=== PATIENT | female | born 1965 | race Caucasian/White ===

== ENCOUNTER 2016-11-21 09:37 | Emergency (ER) | payer OTHER ==
[~2016-11-21] VITALS: Ht 154.9 cm; Wt 56.4 kg
[~2016-11-21 09:37] MED LIST: ACET-1256 PO; ASPI81TA28 PO; CLIN300C2 PO; HYDR-5688 PO
[2016-11-21 09:46] VITALS: TEMP 36.4; Ht 154.9 cm; Wt 56.4 kg
[2016-11-21 10:42] LABS: URINE APPEARANCE CLEAR (CLEAR); URINE BILIRUBIN NEG (NEG); URINE COLOR YELLOW; URINE NITRITE NEG (NEG); URINE PH 6.5 (4.5-7.5); URINE SPECIFIC GRAVITY 1.006 (1.000-1.030); UROBILINOGEN NEG (NEG)
[2016-11-21 10:43] LABS: BASO % 0.3 %; BASO ABS # 0.02 K/uL (0-0.2); COMPLETE YES; EOS % 1.3 %; HEMATOCRIT 39.9 % (37-47); IG% 0.1 %; MEAN CELL VOLUME 92.8 fL (80-100); MEAN CORPUSCULAR HEMOGLOBIN 33.3 pg (25-34); MEAN CORPUSCULAR HGB CONC 35.8 g/dl (32-36); MEAN PLATELET VOLUME 8.9 fL (7.4-10.4); MONO % 5.6 %; NEUT % 61.7 %; PLATELET COUNT 348 K/uL (130-400); WHITE BLOOD COUNT 6.77 K/uL (4.8-10.8)
[2016-11-21 10:54] LABS: MANUAL MICROSCOPIC REQUIRED? NO; REVIEW REQ? NO
[2016-11-21 11:01] LABS: BUN/CREATININE RATIO 16.4 (10-20); CALCIUM 9.6 mg/dl (8.5-10.1); CREATININE 0.72 mg/dl (0.60-1.20); POTASSIUM 3.6 mmol/L (3.5-5.1)
--- NOTE | 2016-11-21 11:01 | DIAGNOSTIC IMAGING REPORT ---
ABDOMEN 2VIEW W/PA CHEST RTN CLINICAL HISTORY: Persistent right upper quadrant abdominal pain COMPARISON STUDY: No previous studies for comparison. FINDINGS: The erect chest reveals no evidence of free air. There is no evidence of focal pulmonary consolidation.] Erect and supine views of the abdomen reveal no abnormally dilated loops of large or small bowel. There are no transition zone to indicate bowel obstruction. There are few scattered air-fluid levels, most of which appear colonic. There are multiple pelvic basin calcifications, likely represent phleboliths. IMPRESSION: No evidence of bowel obstruction. No evidence of free air. Electronically signed by: Aakash Syed M.D. 11/21/2016 11:00 AM Dictated Date/Time: 11/21/2016 10:59 AM
[2016-11-21 11:03] LABS: ALB/GLOB RATIO 1.2 (0.9-2)
--- NOTE | 2016-11-21 12:48 | DIAGNOSTIC IMAGING REPORT ---
BILIARY ULTRASOUND CLINICAL HISTORY: Right upper quadrant abdominal pain COMPARISON STUDY: No previous studies for comparison. FINDINGS: The pancreas appears sonographically normal. The liver appears sonographically normal. There is no right-sided hydronephrosis. There is no ductal dilatation. The common bile duct measures 6 mm. The gallbladder appears sonographically normal. IMPRESSION: Normal study Electronically signed by: Aakash Syed M.D. 11/21/2016 12:45 PM Dictated Date/Time: 11/21/2016 12:44 PM
--- NOTE | 2016-11-21 13:29 | EMERGENCY ROOM VISIT NOTE ---
History First contact with patient: 10:04 Chief Complaint: ABDOMINAL PAIN Stated Complaint: STRONG PAIN ON RIGHT SIDE OF STOMACH Nursing Triage Summary: Triage note; pt reports right upper abd pain x several weeks and pain increased today. pt reports constipation and took a laxative at 0300 today and had bm today. History of Present Illness Patient is a 51-year-old white female who presents to the emergency department for evaluation of right upper quadrant pain 2 weeks. She notes that the pain was mild and tolerable initially, but worsened over the last couple of days and became its most severe at around 6:00 this morning. At its worst she would've rated her pain an 8/10, presently she rates it a 6/10. She describes it as a pinching sensation in her right upper quadrant that does not radiate. There has been no associated nausea, vomiting or anorexia. She denies any urinary symptoms. She has been constipated and did take a laxative today which produced a normal brown bowel movement without melena or blood. She denies any aggravating or alleviating factors including specific foods, belching, coughing or deep breathing or position changes. She has a history of uterine fibroids, and reports that she is perimenopausal, her last menstrual period was about 6 months ago. She denies any abnormal vaginal discharge or pelvic pain. She denies any chest pain, palpitations or shortness of breath. She denies a family history of gallbladder disease. She is status post tubal ligation. Review of Systems Review of systems as per HPI. All other systems reviewed were negative. 10 systems reviewed. Past Medical/Surgical History Medical Problems: (1) Cellulitis (2) Dental abscess (3) Facial swelling (4) Rash (5) UTERINE LEIOMYOMA NOS Electronic medical records are reviewed and summarized as above/below. See Problem List. Family History Cancer Diabetes mellitus Heart disease Lung disease Social History Smoking Status: Current Every Day Smoker Alcohol Use: none Drug Use: none Marital Status: Housing Status: lives with significant other Occupation Status: employed Current/Historical Medications Scheduled Aspirin (Aspirin Ec), 81 MG PO DAILY Scheduled PRN Acetaminophen (Tylenol), 500 MG PO Q6 PRN for Pain Allergies Coded Allergies: Penicillins (Verified Allergy, Intermediate, RASH, 11/21/16) Uncoded Allergies: CILLINS (Allergy, Intermediate, HIVES, 05/09/16) Physical Exam Vital Signs Date Time Temp Pulse Resp B/P Pulse Ox O2 Delivery O2 Flow Rate FiO2 11/21/16 13:42 103 18 153/99 97 Room Air 11/21/16 11:37 81 18 128/94 100 Room Air 11/21/16 09:46 36.4 96 18 131/90 98 Room Air Physical Exam CONSTITUTIONAL: Patient is well-appearing 51-year-old white female who is awake and alert and in no acute distress. Vital signs are stable. EYES: Pupils equal, round, reactive to light and accommodation. EOMs intact without nystagmus. Sclera are anicteric. ENT: Tympanic membranes intact, with normal landmarks. External canals are clear. Oral and nasopharynx are clear. Mucous membranes are moist, no lesions , tongue and gums appear normal. NECK: No bruits auscultated. Supple without lymphadenopathy. No thyromegaly. No meningeal signs. Full active range of motion without discomfort. CARDIOVASCULAR: Regular rate and rhythm, with normal S1 and S2, no murmur or gallop or rub is heard. No carotid bruits auscultated. No JVD. Peripheral pulses easy to palpable. RESPIRATORY: Breath sounds equal and clear to auscultation without wheezes, rales, or rhonchi heard. Full and equal chest expansion without accessory muscle use or retractions. GI: Bowel sounds are present. Abdomen is soft, nontender, nondistended. No organomegaly. No pulsatile masses. No guarding or rebound. Negative Iqbal sign. MUSCULOSKELETAL: Full range of motion of extremities x 4 with good strength. No cyanosis, edema, joint tenderness or swelling. No deformity. INTEGUMENTARY: No lesions or rash, normal skin turgor. NEUROLOGICAL: Alert, oriented, and cooperative. Cranial nerves, sensation and strength grossly intact. Pupils round, equal, and react to light, EOMs are full. LYMPH: No lymphadenopathy. Medical Decision & Procedures ER Provider Diagnostic Interpretation: ABDOMEN 2VIEW W/PA CHEST RTN CLINICAL HISTORY: Persistent right upper quadrant abdominal pain COMPARISON STUDY: No previous studies for comparison. FINDINGS: The erect chest reveals no evidence of free air. There is no evidence of focal pulmonary consolidation. Erect and supine views of the abdomen reveal no abnormally dilated loops of large or small bowel. There are no transition zone to indicate bowel obstruction. There are few scattered air-fluid levels, most of which appear colonic. There are multiple pelvic basin calcifications, likely represent phleboliths. IMPRESSION: No evidence of bowel obstruction. No evidence of free air. BILIARY ULTRASOUND CLINICAL HISTORY: Right upper quadrant abdominal pain COMPARISON STUDY: No previous studies for comparison. FINDINGS: The pancreas appears sonographically normal. The liver appears sonographically normal. There is no right-sided hydronephrosis. There is no ductal dilatation. The common bile duct measures 6 mm. The gallbladder appears sonographically normal. IMPRESSION: Normal study Laboratory Results 11/21/16 10:26 Red Blood Count 4.30, Mean Corpuscular Volume 92.8, Mean Corpuscular Hemoglobin 33.3, Mean Corpuscular Hemoglobin Concent 35.8, Mean Platelet Volume 8.9, Neutrophils (%) (Auto) 61.7, Lymphocytes (%) (Auto) 31.0, Monocytes (%) (Auto) 5.6, Eosinophils (%) (Auto) 1.3, Basophils (%) (Auto) 0.3, Neutrophils # (Auto) 4.17, Lymphocytes # (Auto) 2.10, Monocytes # (Auto) 0.38, Eosinophils # (Auto) 0.09, Basophils # (Auto) 0.02 11/21/16 10:26 Test 11/21/16 10:26 11/21/16 10:27 White Blood Count 6.77 K/uL (4.8-10.8) Red Blood Count 4.30 M/uL (4.2-5.4) Hemoglobin 14.3 g/dL (12.0-16.0) Hematocrit 39.9 % (37-47) Mean Corpuscular Volume 92.8 fL (80-100) Mean Corpuscular Hemoglobin 33.3 pg (25-34) Mean Corpuscular Hemoglobin Concent 35.8 g/dl (32-36) Platelet Count 348 K/uL (130-400) Mean Platelet Volume 8.9 fL (7.4-10.4) Neutrophils (%) (Auto) 61.7 % Lymphocytes (%) (Auto) 31.0 % Monocytes (%) (Auto) 5.6 % Eosinophils (%) (Auto) 1.3 % Basophils (%) (Auto) 0.3 % Neutrophils # (Auto) 4.17 K/uL (1.4-6.5) Lymphocytes # (Auto) 2.10 K/uL (1.2-3.4) Monocytes # (Auto) 0.38 K/uL (0.11-0.59) Eosinophils # (Auto) 0.09 K/uL (0-0.5) Basophils # (Auto) 0.02 K/uL (0-0.2) RDW Standard Deviation 41.2 fL (36.4-46.3) RDW Coefficient of Variation 12.2 % (11.5-14.5) Immature Granulocyte % (Auto) 0.1 % Immature Granulocyte # (Auto) 0.01 K/uL (0.00-0.02) Anion Gap 6.0 mmol/L (3-11) Est Creatinine Clear Calc Drug Dose 68.9 ml/min Estimated GFR () 111.6 Estimated GFR (Non- 96.3 BUN/Creatinine Ratio 16.4 (10-20) Calcium Level 9.6 mg/dl (8.5-10.1) Total Bilirubin 0.8 mg/dl (0.2-1) Aspartate Amino Transf (AST/SGOT) 13 U/L (15-37) Alanine Aminotransferase (ALT/SGPT) 27 U/L (12-78) Alkaline Phosphatase 72 U/L (45-117) Total Protein 8.0 gm/dl (6.4-8.2) Albumin 4.4 gm/dl (3.4-5.0) Globulin 3.6 gm/dl (2.5-4.0) Albumin/Globulin Ratio 1.2 (0.9-2) Lipase 128 U/L (73-393) Urine Color YELLOW Urine Appearance CLEAR (CLEAR) Urine pH 6.5 (4.5-7.5) Urine Specific [place] 1.006 (1.000-1.030) Urine Protein NEG (NEG) Urine Glucose (UA) NEG (NEG) Urine Ketones NEG (NEG) Urine Occult Blood NEG (NEG) Urine Nitrite NEG (NEG) Urine Bilirubin NEG (NEG) Urine Urobilinogen NEG (NEG) Urine Leukocyte Esterase NEG (NEG) Urine Test NEG (NEG) ED Course The patient was seen and evaluated as above. Her old records were reviewed. IV access obtained. She declined any medication for discomfort in the emergency department. CBC with differential, CMP, lipase, urinalysis and urine test were performed. Acute abdominal series and right upper quadrant ultrasounds were obtained. Laboratory studies normal white count. No left shift or bandemia. H&H is normal. Electrolytes and liver functions are elevated. Lipase is not indicative of acute pancreatitis. Urinalysis is completely clear without signs of infection. Consolidation or evidence for bowel obstruction. Right upper quadrant ultrasound was normal. There was no ductal dilatation or gallbladder. All laboratory and diagnostic imaging findings were reviewed with the patient. She was encouraged to use [id number] medications for discomfort, and follow-up with her primary care provider if her symptoms are not improving in the next 3-5 days. Differential diagnoses entertained included GERD, gastritis , esophagitis, pancreatitis, cholelithiasis, acute cholecystitis, ascending cholangitis, bowel obstruction, perforation, constipation, mass or malignancy, among others. Medical Decision See ED course. Impression Primary Impression: Right upper quadrant abdominal pain Departure Information Referrals Sergo Pena M.D. (MEDICAL) (PCP) Patient Instructions My [facility] Additional Instructions Ibuprofen(Motrin, Advil) may be used for fever or pain. Use 600mg every six hours as needed. Take with food. Avoid using more than 2400mg in a 24 hour period. Do not use 2400mg per day for more than three consecutive days without physician direction. Prolonged inappropriate use can lead to stomach upset or ulcers. This is available over the counter and typically comes in 200mg tablets. (AND/OR) Acetaminophen(Tylenol) may be used for fever or pain. Use 1000mg every eight hours as needed. Avoid using more than 3000mg in a 24 hour period. This is available over the counter. Rest and drink plenty of fluids as tolerated. Slow sips of water or sports drinks are recommended instead of large amounts all at once. Continue current medications. Once your stomach is settled start with a clear liquid diet (jello, soup broth, etc.) and then advance as tolerated. You should avoid full, heavy meals for about 24 hrs from the time your symptoms resolved. Return to the ER immediately for worsening or persistent abdominal pain, vomiting, fevers, chest pains, difficulty breathing, black or bloody stools, worsening of your condition, or as needed. Follow up with your primary physician in 1-2 days for a recheck of your current condition.
[2016-11-21 13:42] VITALS: BP 153/99; PULSE 103; O2SAT 97
== END 2016-11-21 13:43 | disposition home or self-care (01) ==
LOC: C.EDB 09:38
DX: R10.11 Right upper quadrant pain (principal); Z80.9 Family history of malignant neoplasm, unspecified; Z83.3 Family history of diabetes mellitus; Z82.49 Family history of ischemic heart disease and other diseases of the circulatory system; Z83.6 Family history of other diseases of the respiratory system; F17.210 Nicotine dependence, cigarettes, uncomplicated; Z79.82 Long term (current) use of aspirin

== ENCOUNTER 2023-12-25 13:25 | Inpatient (IN) ==
--- NOTE | 2023-12-25 13:30 | Emergency Department Note ---
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 Code stroke was initiated in the field. IV was established and blood work was obtained along with CT head and CT angiography of the head and neck. Patient is a normal white count hemoglobin and platelet count. I did speak with Dr. Nixon with [facility] who did evaluate the patient at bedside. Patient's kidney function is unremarkable. Lyme's negative. Patient CT head negative. Patient was ordered a dose of IV labetalol given the patient's borderline elevated blood pressure and concern for TNK being needed. The patient CT angiography of the head and neck did show complete age-indeterminate thrombosis of the right vertebral likely acute dissection. I did convey this to Dr. Nixon stated that this would not be a contraindication for TNK. The patient was ordered TNK after the risks and benefits were discussed with the patient by Dr. Nixon. Patient did receive this. I did speak to the on-call medicine service Dr. Aguilar and did message the chief growth officer Dr. Parekh to make him aware the patient was post TNK. Patient did have headache and was ordered headache medication. Repeat CT of the head was obtained which does not show obvious ICH. Critical Care: I have personally spent 42 minutes of critical care time in direct management of this patient. This includes bedside care, interpretation of diagnostic studies, and testing, discussion with consultants, patient, and family members, and other require inpatient management activities. This 42 minutes is in excess of all separately billable procedures. Discussion w/ other healthcare providers: Dr. Nixon with [facility] Dr. Aguilar inpatient medicine service Prior /Outside records reviewed: Reviewed a general surgery visit with Dr. Tena. 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 Patient reportedly has extensive leukoplakia throughout the mouth tongue patient with a history of everyday smoking poor oral hygiene exposed bone leukoplakia due to concern for osteomyelitis Differential diagnosis: Infection, dehydration, metabolic abnormality, hypo/hyperglycemia, electrolyte imbalance, anemia, UTI, pneumonia, thyroid dysfunction among others were considered. Diagnostics, as interpreted by me: ECG: Sinus bradycardia, rate of 41, normal intervals, normal axis no ST elevations. Cardiac monitoring: An order was placed for continuous cardiac monitoring. The monitor shows a rate of 55 with bradycardic and regular rhythm. Patient was placed on pulse oximetry Medical decision rules: None Imaging studies: I informally interpreted the patient's CT head does not show obvious ICH with formal report to follow. HPI: Patient presents due to concern for lightheadedness and dizziness and a code stroke was initiated due to concern for an EMS report and route. EMS reported that they were initially called to the scene due to concern for lightheadedness and dizziness. Family was concerned due to her symptoms that it could be related to a recent exhaust leak that was reported from her vehicle. In route EMS was concerned as I thought maybe she had some slight asymmetry with the right side of her face and associated slurred speech. They report no trauma no intoxication no blood thinner use. No falls or trauma. The patient does complain of headache. Patient also had complained of some right arm weakness. No prior history of stroke or mini stroke. Patient does not take any medications PAST MEDICAL HISTORY: See Below PAST SURGICAL HISTORY: See Below SOCIAL HISTORY: See Below HOME MEDICATIONS: See Below ALLERGIES: See Below VITALS: See Below PHYSICAL EXAMINATION: GENERAL: NAD, non-toxic. EYE EXAM: Normal conjunctiva. PERRL, no anisocoria and EOM's grossly intact w/o pain. OROPHARYNX: Moist mucus membranes, poor dentition. NECK: Trachea midline, no stridor. LUNGS: Clear to auscultation. Normal chest wall mechanics. HEART: NSR, no MRG. ABDOMEN: Abdomen soft, non-tender, no masses, no rebound or guarding. BACK: No CVA TTP. SKIN: No rashes and no bruising. UPPER EXTREMITIES: Upper extremities are grossly normal. LOWER EXTREMITIES: Grossly normal, no edema. NEURO EXAM: Awake and alert follows basic commands, slurred speech, dysmetria with right upper extremity, right-sided facial droop, weakness of right upper and right lower extremity. 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 of mandible Teeth missing due to caries Rash Facial swelling Dental abscess Cellulitis Family History Aunt Breast cancer Father Cancer Grandmother Diabetes Social History Smoking Status: Heavy tobacco smoker Tobacco Type: Cigarettes Do You Dip or Chew Tobacco: No; Hx Alcohol Use: No Hx Substance Use: No Preferred Language: Hebrew Communication Ability: Effective Pasting Inspector Required: No Beliefs That Will Affect Care: None marital status: Current Living Situation: Spouse and Family current occupational status: employed Feels Safe at Home: Yes Assistive Devices: None Allergies Allergies Allergy/AdvReac Type Severity Reaction Status Date / Time Penicillins Allergy Intermediate Hives Verified 12/25/23 16:03 CILLINS Allergy Intermediate HIVES Uncoded 12/25/23 16:03 Home Meds Previous Rx's Medication Instructions Recorded aspirin 81 mg tablet,delayed 81 mg PO QAM #30 tabs 12/27/23 release atorvastatin 40 mg tablet 40 mg PO QAM #30 tabs 12/27/23 clopidogrel 75 mg tablet 75 mg PO QAM #30 tabs 12/27/23 Results & Data (ED) Home Medications Current Medication List: was personally reviewed by me Laboratory Data Attestation: I reviewed the patient's lab results. 12/27/23 06:08 12/27/23 06:08 Lab Results 12/25/23 12/25/23 12/25/23 Range/Units 13:42 13:45 13:57 WBC 9.16 (4.8-10.8) K/ul RBC 4.00 L (4.20-5.40) M/uL Hgb 12.6 (12.0-16.0) g/dl POC Hgb (12.0-16.0) g/dl Hct 35.3 L (37.0-47.0) % POC Hct (37-47) % MCV 88.3 (80.0-100.0) fL MCH 31.5 (25.0-34.0) pg MCHC 35.7 (32.0-36.0) g/dL RDW Std Deviation 39.6 (36.4-46.3) fL RDW Coeff of Sofy 12.2 (11.5-14.5) % Plt Count 365 (130-400) K/uL MPV 9.2 L (9.4-12.4) fL Immature Gran % (Auto) 0.5 % Neut % (Auto) 73.1 % Lymph % (Auto) 20.0 % Schuyler % (Auto) 5.6 % Eos % (Auto) 0.4 % Baso % (Auto) 0.4 % Neut # (Auto) 6.69 H (1.40-6.50) K/uL Lymph # (Auto) 1.83 (1.20-3.40) K/uL Schuyler # (Auto) 0.51 (0.11-0.59) K/uL Eos # (Auto) 0.04 (0.00-0.50) K/uL Baso # (Auto) 0.04 (0.00-0.20) K/uL Immature Gran # (Auto) 0.05 (0.01-0.20) K/uL PT 10.3 (9.0-12.0) Seconds POC INR (0.9-1.1) INR 0.9 (0.9-1.1) APTT 24 (21-31) Seconds PTT Ratio 0.9 Carboxyhemoglobin 4.1 % THgb POC Sodium (135-144) mmol/L Sodium 134 L (136-145) mmol/L POC Potassium (3.3-5.0) mmol/L Potassium 3.6 (3.5-5.1) mmol/L POC Chloride (101-112) mmol/L Chloride 102 (98-107) mmol/L Carbon Dioxide 24 (21-32) mmol/L POC Total CO2 (24-31) mmol/L Anion Gap 8 (3-11) POC Anion Gap (16-25) mmol/L POC BUN (7-18) mg/dl BUN 19 (6-23) mg/dl Creatinine 0.60 (0.6-1.2) mg/dl POC Creatinine (0.6-1.3) mg/dl Est Cr Clr Drug Dosing 86.4 ml/min Est GFR ( Amer) 115.6 ml/min Est GFR (Non-Af Amer) 99.8 ml/min BUN/Creatinine Ratio 31.7 H (10-20) Glucose 164 H (70-99(Fasting)) mg/dl POC Glucose 163 H (70-99) mg/dl POC Glucose (other) (70-99) mg/dl Calcium 8.4 L (8.6-10.3) mg/dl POC Ioniz Calcium Rizwana (1.12-1.32) mmol/l Magnesium 1.9 (1.7-2.4) mg/dl Total Bilirubin 0.5 (0.2-1.0) mg/dl AST 11 L (13-39) U/L ALT 11 (7-52) U/L Alkaline Phosphatase 60 (34-104) U/L Troponin I High Sens 2.4 (0-14) pg/ml Total Protein 6.5 (6.0-8.3) gm/dl Albumin 3.8 (3.4-5.0) gm/dl Globulin 2.7 (2.5-4.0) gm/dl Albumin/Globulin Ratio 1.4 (0.9-2) Lyme Disease Screen Negative (Negative) 12/25/23 12/25/23 Range/Units 14:00 14:06 WBC (4.8-10.8) K/ul RBC (4.20-5.40) M/uL Hgb (12.0-16.0) g/dl POC Hgb 13.3 (12.0-16.0) g/dl Hct (37.0-47.0) % POC Hct 39 (37-47) % MCV (80.0-100.0) fL MCH (25.0-34.0) pg MCHC (32.0-36.0) g/dL RDW Std Deviation (36.4-46.3) fL RDW Coeff of Sofy (11.5-14.5) % Plt Count (130-400) K/uL MPV (9.4-12.4) fL Immature Gran % (Auto) % Neut % (Auto) % Lymph % (Auto) % Schuyler % (Auto) % Eos % (Auto) % Baso % (Auto) % Neut # (Auto) (1.40-6.50) K/uL Lymph # (Auto) (1.20-3.40) K/uL Schuyler # (Auto) (0.11-0.59) K/uL Eos # (Auto) (0.00-0.50) K/uL Baso # (Auto) (0.00-0.20) K/uL Immature Gran # (Auto) (0.01-0.20) K/uL PT (9.0-12.0) Seconds POC INR 0.9 (0.9-1.1) INR (0.9-1.1) APTT (21-31) Seconds PTT Ratio Carboxyhemoglobin % THgb POC Sodium 136 (135-144) mmol/L Sodium (136-145) mmol/L POC Potassium 3.3 (3.3-5.0) mmol/L Potassium (3.5-5.1) mmol/L POC Chloride 103 (101-112) mmol/L Chloride (98-107) mmol/L Carbon Dioxide (21-32) mmol/L POC Total CO2 22 L (24-31) mmol/L Anion Gap (3-11) POC Anion Gap 16.0 (16-25) mmol/L POC BUN 16 (7-18) mg/dl BUN (6-23) mg/dl Creatinine (0.6-1.2) mg/dl POC Creatinine 0.5 L (0.6-1.3) mg/dl Est Cr Clr Drug Dosing ml/min Est GFR ( Amer) ml/min Est GFR (Non-Af Amer) ml/min BUN/Creatinine Ratio (10-20) Glucose (70-99(Fasting)) mg/dl POC Glucose (70-99) mg/dl POC Glucose (other) 165 H (70-99) mg/dl Calcium (8.6-10.3) mg/dl POC Ioniz Calcium Rizwana 1.16 (1.12-1.32) mmol/l Magnesium (1.7-2.4) mg/dl Total Bilirubin (0.2-1.0) mg/dl AST (13-39) U/L ALT (7-52) U/L Alkaline Phosphatase (34-104) U/L Troponin I High Sens (0-14) pg/ml Total Protein (6.0-8.3) gm/dl Albumin (3.4-5.0) gm/dl Globulin (2.5-4.0) gm/dl Albumin/Globulin Ratio (0.9-2) Lyme Disease Screen (Negative) Administered Medications Discontinued Medications Acetaminophen (Acetaminophen 1000 Mg/100 Ml Iv) 1,000 mg IV NOW STA Stop: 12/25/23 15:15 Last Admin: 12/25/23 15:19 Dose: 1,000 mg Documented By: RAMYA Aspirin (Aspirin 81 Mg Ectab) 81 mg PO [facility] Stop: 01/25/24 16:44 Last Admin: 12/27/23 08:10 Dose: 81 mg Documented By: Admin: 12/26/23 17:06 Dose: 81 mg Documented By: DEVAN Atorvastatin Calcium (Atorvastatin 40 Mg Tab) 40 mg PO [facility] Stop: 01/25/24 12:29 Last Admin: 12/27/23 08:10 Dose: 40 mg Documented By: Admin: 12/26/23 13:05 Dose: 40 mg Documented By: DEVAN Clopidogrel Bisulfate (Clopidogrel Bisulfate 75 Mg Tab) 75 mg PO NOW ONE Stop: 12/26/23 16:35 Last Admin: 12/26/23 17:06 Dose: 75 mg Documented By: DEVAN Clopidogrel Bisulfate (Clopidogrel Bisulfate 75 Mg Tab) 75 mg PO [facility] Stop: 01/26/24 08:59 Last Admin: 12/27/23 08:10 Dose: 75 mg Documented By: MIRANDA Tenecteplase 16 mg/ Syringe 3.2 mls @ 38.4 mls/min IV NOW ONE; Protocol Stop: 12/25/23 13:58 Last Admin: 12/25/23 14:08 Dose: 38.4 mls/min Documented By: AM Co-signed By: JULIANA Magnesium Sulfate/Dextrose (Magnesium Sulfate / D5w) 1 gm in 100 mls @ 300 mls/hr IV NOW ONE Stop: 12/25/23 15:33 Last Infusion: 12/25/23 16:07 Dose: Infused Documented By: Admin: 12/25/23 15:31 Dose: 300 mls/hr Documented By: RAMYA Labetalol HCl (Labetalol Hcl Iv 5 Mg/Ml 20ml) 10 mg IV NOW STA Stop: 12/25/23 13:46 Last Admin: 12/25/23 13:49 Dose: 10 mg Documented By: AM Co-signed By: JULIANA Melatonin (Melatonin 3 Mg Tab) 3 mg PO HS PRN PRN Reason: Sleep Stop: 01/25/24 19:31 Last Admin: 12/26/23 21:28 Dose: 3 mg Documented By: TALISHA Bricenocellaneous (Stat Iv/Im) 1 each N/A NOW STA Stop: 12/25/23 13:48 Last Admin: 12/25/23 14:31 Dose: 1 each Documented By: PAUL Sunshine (Icu Protocol For Hyperglycemia) 1 each N/A ACHS BELLO Stop: 12/27/23 17:24 Last Admin: 12/25/23 18:55 Dose: 1 each Documented By: BRODERICK Sunshine (Icu Protocol For Hyperglycemia) 1 each N/A Q6 BELLO Stop: 12/27/23 17:24 Last Admin: 12/26/23 20:47 Dose: Not Given Documented By: Admin: 12/26/23 05:46 Dose: Not Given Documented By: Admin: 12/26/23 00:17 Dose: Not Given Documented By: KWAME Miscellaneous Information (Stroke Patient Discharge) 1 each N/A NOW STA Stop: 12/27/23 15:28 Last Admin: 12/27/23 16:46 Dose: 1 each Documented By: MIRANDA Ondansetron HCl (Ondansetron Inj 2 Mg/Ml 2 Ml Vial) 4 mg IV NOW STA Stop: 12/25/23 14:22 Last Admin: 12/25/23 14:28 Dose: 4 mg Documented By: AM Ondansetron HCl (Ondansetron Inj 2 Mg/Ml 2 Ml Vial) 4 mg IV NOW STA Stop: 12/25/23 15:15 Last Admin: 12/25/23 15:19 Dose: 4 mg Documented By: RAMYA Sodium Chloride (Sodium Chloride 0.9% 10ml Flush) 20 ml IV NOW STA Stop: 12/25/23 13:48 Last Admin: 12/25/23 14:08 Dose: 20 ml Documented By: AM Imaging Data Radiologist's Impression: Head CT 12/25/23 13:26 CT OF THE HEAD WITHOUT CONTRAST CLINICAL HISTORY: neuro deficit, acute stroke suspected. Slurred speech. Right- sided weakness. COMPARISON STUDY: Head CT December 13, 2011. CT DOSE: 1093.42 mGy.cm TECHNIQUE: Helical axial images of the head were obtained without IV contrast. Automated exposure control was utilized for the study. A dose lowering technique was utilized adhering to the principles of ALARA. FINDINGS: No acute intracranial hemorrhage, midline shift or mass effect is present. The ventricular system is unremarkable. The basal cisterns are patent. No extra-axial collections are present. There are no findings to suggest acute dural sinus thrombosis or acute territorial infarct. No significant calvarial abnormalities are present. Visualized portions of the sinuses and mastoid air cells are clear. IMPRESSION: No acute intracranial findings. ACT 112: Negative or not required by law. Electronically signed by: Davin Kumar M.D. 12/25/2023 1:41 PM Head CTA 12/25/23 13:26 CT ANGIOGRAM OF THE BRAIN CLINICAL HISTORY: Neurological deficit. Stroke like symptoms. Slurred speech. Right-sided weakness. COMPARISON STUDY: Unenhanced CT of the brain performed concurrently on 12/25/2023. TECHNIQUE: Following, following the IV administration of 120 cc of Optiray 320, CT angiogram of the brain was performed from the skull base to the vertex. Images are reviewed in the axial, sagittal, and coronal planes. 3-D MIPS images are created and assessed. IV contrast was administered without complication. A dose lowering technique was utilized adhering to the principles of ALARA. FINDINGS: Brain parenchyma: There is no evidence of hemorrhage, mass effect, or acute territorial ischemia by CT criteria noting angiographic phase technique. There is no evidence of enhancing mass lesion on the angiogram phase images. No extra- axial fluid collection is seen. Mack-white matter differentiation is preserved. Ventricles, sulci, and cisterns: Normal in configuration. CT angiogram of the brain: The internal carotid arteries are widely patent, as are the anterior and middle cerebral arteries. There is complete occlusion of the right vertebral artery at the skull base. There is minimal retrocrural soft tissue just below the basilar, likely via retrograde flow. The left vertebral artery and basilar artery are widely patent. The posterior cerebral arteries are clear. There are bilateral posterior communicating arteries. No aneurysm or focus of high-grade stenosis is seen throughout the intracranial circulation. Dural sinuses: Clear as visualized. Orbits: The bony orbits are intact. The orbital contents are normal as visualized. Sinuses and mastoids: The visualized paranasal sinuses are clear. The mastoid air cells are well pneumatized. Calvarium: Unremarkable. IMPRESSION: 1. There is no evidence of hemorrhage, mass effect, or acute territorial ischemia by CT criteria noting angiographic phase technique. 2. There is complete and age indeterminant thrombosis of the right vertebral artery at the skull base. Acute dissection is favored. 3. The remaining intracranial vessels are patent.. ACT 112: Negative or not required by law. Electronically signed by: Francesco Mcgee M.D. 12/25/2023 1:58 PM Neck CTA 12/25/23 13:26 CT ANGIOGRAPHY OF THE NECK WITH CONTRAST CLINICAL HISTORY: neuro deficit, acute stroke suspected COMPARISON STUDY: No previous studies for comparison. Technique: CT angiography of the carotid and vertebral arteries was obtained using Optiray and 3D reconstruction on an independent workstation. NASCET criteria was utilized. Automated exposure control was utilized for the study. A dose lowering technique was utilized adhering to the principles of ALARA. Findings: Mild emphysema is incidentally noted within the lung apices. There is no cervical lymphadenopathy. No cervical spine fractures are noted. The bilateral common carotid and cervical internal carotid arteries are patent. There is minimal plaque within the proximal bilateral internal carotid arteries without stenosis. The left vertebral artery is unremarkable. Note is made of narrowing of the distal cervical portion of the right vertebral artery with abrupt occlusion, just proximal to the intracranial portion. This is shown on axial image 280 of 379. Intracranial portion of the right vertebral artery is occluded. There may be minimal contrast within the distal right vertebral artery, likely retrograde flow from the basilar artery. CTA of the head will be reported separately. There is no aneurysm within the neck. There is moderate plaque within the proximal right subclavian artery with mild stenosis. There is mild medialization of the right vocal cord. IMPRESSION: 1. Occlusion of the distal cervical portion of the right vertebral artery, just proximal to the intracranial portion. This occlusion is technically age indeterminate but likely acute and underlying dissection could have this imaging appearance. 2. Otherwise, unremarkable CTA of the neck. Minimal plaque within the proximal bilateral internal carotid arteries without stenosis. 3. Mild medialization of the right vocal cord. Right-sided vocal cord paralysis cannot be excluded. ACT 112: Negative or not required by law. Electronically signed by: Davin Kumar M.D. 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
--- NOTE | 2023-12-25 13:43 | CT Scan Report ---
CT OF THE HEAD WITHOUT CONTRAST CLINICAL HISTORY: neuro deficit, acute stroke suspected. Slurred speech. Right-sided weakness. COMPARISON STUDY: Head CT December 13, 2011. CT DOSE: 1093.42 mGy.cm TECHNIQUE: Helical axial images of the head were obtained without IV contrast. Automated exposure con trol was utilized for the study. A dose lowering technique was utilized adhering to the principles o f ALARA. FINDINGS: No acute intracranial hemorrhage, midline shift or mass effect is present. The ventricular system is unremarkable. The basal cisterns are patent. No extra-axial collections are present. There are no findings to suggest acute dural sinus thrombosis or acute territorial infarct. No significant calvarial abnormalities are present. Visualized portions of the sinuses and mastoid air cells are davon ar. IMPRESSION: No acute intracranial findings. ACT 112: Negative or not required by law. Electronically signed by: Davin Kumar M.D. 12/25/2023 1:41 PM
[2023-12-25] MEDS ORDERED: LABETALOL HCL IV 5 MG/ML 20ML IV PRN (13:45)
[2023-12-25] MEDS: LABETALOL HCL IV 5 MG/ML 20ML IV STA (13:49)
--- NOTE | 2023-12-25 13:53 | CT Scan Report ---
CT ANGIOGRAPHY OF THE NECK WITH CONTRAST CLINICAL HISTORY: neuro deficit, acute stroke suspected COMPARISON STUDY: No previous studies for comparison. Technique: CT angiography of the carotid and vertebral arteries was obtained using Optiray and 3D rec onstruction on an independent workstation. NASCET criteria was utilized. Automated exposure control was utilized for the study. A dose lowering technique was utilized adhering to the principles of ALA RA. Findings: Mild emphysema is incidentally noted within the lung apices. There is no cervical lymphaden opathy. No cervical spine fractures are noted. The bilateral common carotid and cervical internal car otid arteries are patent. There is minimal plaque within the proximal bilateral internal carotid agustin holger without stenosis. The left vertebral artery is unremarkable. Note is made of narrowing of the di stal cervical portion of the right vertebral artery with abrupt occlusion, just proximal to the intra cranial portion. This is shown on axial image 280 of 379. Intracranial portion of the right vertebral artery is occluded. There may be minimal contrast within the distal right vertebral artery, likely r etrograde flow from the basilar artery. CTA of the head will be reported separately. There is no aneu rysm within the neck. There is moderate plaque within the proximal right subclavian artery with mild stenosis. There is mild medialization of the right vocal cord. IMPRESSION: 1. Occlusion of the distal cervical portion of the right vertebral artery, just proximal to the intra cranial portion. This occlusion is technically age indeterminate but likely acute and underlying diss ection could have this imaging appearance. 2. Otherwise, unremarkable CTA of the neck. Minimal plaque within the proximal bilateral internal car otid arteries without stenosis. 3. Mild medialization of the right vocal cord. Right-sided vocal cord paralysis cannot be excluded. ACT 112: Negative or not required by law. Electronically signed by: Davin Kumar M.D. 12/25/2023 1:52 PM
--- NOTE | 2023-12-25 13:59 | CT Scan Report ---
CT ANGIOGRAM OF THE BRAIN CLINICAL HISTORY: Neurological deficit. Stroke like symptoms. Slurred speech. Right-sided weakness. COMPARISON STUDY: Unenhanced CT of the brain performed concurrently on 12/25/2023. TECHNIQUE: Following, following the IV administration of 120 cc of Optiray 320, CT angiogram of the b rain was performed from the skull base to the vertex. Images are reviewed in the axial, sagittal, and coronal planes. 3-D MIPS images are created and assessed. IV contrast was administered without compl ication. A dose lowering technique was utilized adhering to the principles of ALARA. FINDINGS: Brain parenchyma: There is no evidence of hemorrhage, mass effect, or acute territorial ischemia by C T criteria noting angiographic phase technique. There is no evidence of enhancing mass lesion on the angiogram phase images. No extra-axial fluid collection is seen. Mack-white matter differentiation is preserved. Ventricles, sulci, and cisterns: Normal in configuration. CT angiogram of the brain: The internal carotid arteries are widely patent, as are the anterior and m iddle cerebral arteries. There is complete occlusion of the right vertebral artery at the skull base. There is minimal retrocrural soft tissue just below the basilar, likely via retrograde flow. The lef t vertebral artery and basilar artery are widely patent. The posterior cerebral arteries are clear. T here are bilateral posterior communicating arteries. No aneurysm or focus of high-grade stenosis is s een throughout the intracranial circulation. Dural sinuses: Clear as visualized. Orbits: The bony orbits are intact. The orbital contents are normal as visualized. Sinuses and mastoids: The visualized paranasal sinuses are clear. The mastoid air cells are well pneu matized. Calvarium: Unremarkable. IMPRESSION: 1. There is no evidence of hemorrhage, mass effect, or acute territorial ischemia by CT criteria noti ng angiographic phase technique. 2. There is complete and age indeterminant thrombosis of the right vertebral artery at the skull base . Acute dissection is favored. 3. The remaining intracranial vessels are patent.. ACT 112: Negative or not required by law. Electronically signed by: Francesco Mcgee M.D. 12/25/2023 1:58 PM
[2023-12-25] MEDS ORDERED: No Aspirin within 24hrs of THROMBOLYTIC-Stroke PO SCH (14:00)
[2023-12-25] MEDS: TENECTEPLASE 16 MG in SYRINGE 0 ML IV ONE (14:08)
[2023-12-25] MEDS: SODIUM CHLORIDE 0.9% 10ML FLUSH IV STA (14:08)
[2023-12-25 14:11] LABS: Basophils # (auto) 0.04 K/uL (0.00-0.20); Basophils % (auto) 0.4 %; Eosinophils # (auto) 0.04 K/uL (0.00-0.50); Eosinophils % (auto) 0.4 %; Hematocrit (blood only) 35.3 % (37.0-47.0); Hemoglobin 12.6 g/dl (12.0-16.0); Immature Granulocytes # (auto) 0.05 K/uL (0.01-0.20); Immature Granulocytes % (auto) 0.5 %; Lymphocytes # (auto) 1.83 K/uL (1.20-3.40); Mean Corpuscular Hemoglobin 31.5 pg (25.0-34.0); Mean Corpuscular Hgb Conc 35.7 g/dL (32.0-36.0); Mean Corpuscular Volume 88.3 fL (80.0-100.0); Mean Platelet Volume 9.2 fL (9.4-12.4); Monocytes # (auto) 0.51 K/uL (0.11-0.59); Monocytes % (auto) 5.6 %; Neutrophils # (auto) 6.69 K/uL (1.40-6.50); Neutrophils % (auto) 73.1 %; Platelet Count 365 K/uL (130-400); RDW Coefficient of Variation 12.2 % (11.5-14.5); RDW Standard Deviation 39.6 fL (36.4-46.3); White Blood Count 9.16 K/ul (4.8-10.8)
[2023-12-25 14:18] LABS: iSTAT Creatinine 0.5 mg/dl (0.6-1.3); iSTAT Hemoglobin 13.3 g/dl (12.0-16.0); iSTAT Ionized Calcium 1.16 mmol/l (1.12-1.32); iSTAT Potassium 3.3 mmol/L (3.3-5.0)
[2023-12-25 14:27] LABS: Albumin Globulin Ratio 1.4 (0.9-2); Albumin Level 3.8 gm/dl (3.4-5.0); BUN Creatinine Ratio 31.7 (10-20); Bilirubin,Total 0.5 mg/dl (0.2-1.0); Calcium 8.4 mg/dl (8.6-10.3); Creatinine Clr Calc Pharmacy 86.4 ml/min; Est GFR (African American) 115.6 ml/min; Est GFR (Non-African American) 99.8 ml/min; Globulin 2.7 gm/dl (2.5-4.0); Magnesium 1.9 mg/dl (1.7-2.4); Potassium 3.6 mmol/L (3.5-5.1); Total Protein 6.5 gm/dl (6.0-8.3)
[2023-12-25] MEDS: ONDANSETRON INJ 2 MG/ML 2 ML VIAL IV STA ×2 (14:28→15:19)
[2023-12-25] MEDS: STAT IV/IM STA (14:31)
[2023-12-25 14:33] LABS: Troponin I High Sensitivity 2.4 pg/ml (0-14)
[2023-12-25 14:39] LABS: INR 0.9 (0.9-1.1); Partial Thromboplastin Ratio 0.9; Partial Thromboplastin Time 24 Seconds (21-31); Prothrombin Time 10.3 Seconds (9.0-12.0)
[2023-12-25] MEDS: ACETAMINOPHEN 1000 MG/100 ML IV IV STA (15:19)
[2023-12-25] MEDS: MAGNESIUM SULFATE / D5W 1 GM/100 ML BAG IV ONE (15:31)
--- NOTE | 2023-12-25 15:31 | CT Scan Report ---
CT SCAN OF THE BRAIN WITHOUT IV CONTRAST CLINICAL HISTORY: Headache. COMPARISON STUDY: CT of the brain performed earlier the same day 12/25/2023. TECHNIQUE: Unenhanced axial CT scan of the brain is performed from the vertex to the skull base. A d ose lowering technique was utilized adhering to the principles of ALARA. There is residual IV contras t from today's earlier angiogram examinations. CT DOSE: 547.75 mGy.cm FINDINGS: Brain parenchyma: The brain parenchyma is normal in appearance. There is no evidence of hemorrhage, m ass effect, or acute territorial ischemia noting residual IV contrast throughout the intracranial cir culation. Mack-white matter differentiation is preserved. No extra-axial fluid collection is seen. Ventricles, sulci, cisterns: Normal in configuration. Intracranial vasculature: The visualized intracranial vasculature at the skull base is normal in appe arance. Calvarium: Unremarkable. Sinuses and mastoids: The visualized paranasal sinuses are clear. The mastoid air cells are well pneu matized. Orbits: The bony orbits are grossly intact. IMPRESSION: There is no evidence of hemorrhage, mass effect, or acute territorial ischemia noting re sidual IV contrast throughout the intracranial circulation. ACT 112: Negative or not required by law. Electronically signed by: Francesco Mcgee M.D. 12/25/2023 3:30 PM
--- NOTE | 2023-12-25 15:46 | History & Physical Report ---
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 Patient started slurring her speech and had some slight right-sided facial asymmetry as well en route to the ED, per sign out from Dr. Estes who was informed of these findings by the EMS providers. Consequently, stroke alert was called en route to the ED. EKG performed in the ED revealed the following: NSR w/ HR 72bpm, P-R Int 178ms, QRS Dur 94 and QT/QTc 420/459ms. Initial head CT showed NO acute intracranial findings. However, head CTA displayed complete and age indeterminant thrombosis of the R vertebral artery at the skull base. Acute dissection favored on this imaging study. Neck CTA revealed the following: * Occlusion of the distal cervical portion of the R vertebral artery, just proximal to the intracranial portion. This occlusion is most likely acute and underlying dissection could having similar appearance on imaging. Otherwise, unremarkable CTA of the neck. Minimal plaque w/in the proximal b/l internal carotid arteries w/o stenosis. * Incidental finding of mild medialization of the right vocal cord noted; right- sided vocal cord paralysis cannot be excluded. Dr. Estes spoke with [facility] who advised to proceed with TNK administration, no need for transfer at this time. Patient is now S/P TNK ADMINISTRATION. Repeat head CT once again showed NO evidence of acute intracranial findings [hemorrhage, mass effect or acute territorial ischemia]. She did complain of a headache in the ED and was given the following IV Tylenol and 1g IV magnesium. Other medications given in the ED include: * 20mg IV Labetalol * 20 mL IV IVF [NSS] * 8mg IV Zofran Labs performed in ED rather unremarkable, no acute electrolyte imbalances noted. --> Na 134, K 3.3, Cl 103, Ca 8.4 and Mag 1.9. Glucose is currently elevated at 165. Lyme screen negative. 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 * NO ASA w/in 24hrs of TNK administration, which was done @ 13:57 (12/25/2023). -Currently NPO, did not pass most recent dysphagia screening. Can repeat and then reassess in regard to advancing her diet w/ input of dietitian. -Continuous cardiac, SpO2 monitoring in the ICU. Bleeding precautions, frequent neuro checks and stroke scale assessments in place. -SBP currently holding steady in the 140s, most recent BP 144/83. HR now wavering b/n ~upper 40s-mid 50s. -Routine neurology consult placed [Dr. Colin Jaramillo], appreciate their input/recommendation(s). -Current activity is complete bedrest, PT/OT consults placed to further assess her ambulatory status. -Did place order for fall precautions in anticipation for upcoming therapy during hospitalization. -No need for supplemental oxygen therapy at this time, currently sating @ 99% on RA. -Additional ICU orders in place per protocol [i.e., measuring I&Os, daily weights, frequent vital signs assessments, etc.]. AM labs ordered and include the following: * CBC w/ diff, BMP, hepatic function panel, hemoglobin A1C, fasting lipid panel, magnesium/phosphorus, PTT and PT/INR. Tobacco use disorder -Smoking cessation education ordered, monitor for any signs of potential nicotine withdrawal. -Could potentially consider nicotine patch therapy during hospitalization. DVT Prophylaxis: SCDs - For now s/p TNK administration. Code Status: FULL CODE PCP: Colin Voss MD Dispo: Admit to ICU, as per above. Patient seen in collaboration with Dr. Aguilar. Please see his addendum for further assessment and plan. I spent a total of 75 minutes coordinating, documenting, and providing care for this patient excluding time spent in the performance of separately billed services. This included personally reviewing all current laboratories and imaging studies, medical reconciliation, outpatient chart review and discussion with specialists. This chart was completed in part utilizing Speech Voice Recognition Software. Grammatical errors, random word insertions, pronoun errors, and incomplete sentences are an occasional consequence of this system due to software limitations, ambient noise, and hardware issues. Any formal questions or concerns about the content, text, or information contained within the body of this dictation should be directly addressed to the provider for clarification. History of Present Illness Chief Complaint: Stroke-Like Symptoms, Stroke Alert Primary Care Provider: Colin Voss MD Nena Ramsey is a 58y/o F with PMHx of tobacco use disorder, possible TIA [ 07/28/2011, per [facility] documentation], cervical disc degeneration, anxiety, migraines and other problems listed below who presented to the ED via EMS for evaluation of sudden-onset dizziness and lightheadedness beginning ~12:45pm today. Patient started slurring her speech and had some slight right-sided facial asymmetry as well en route to the ED, per sign out from Dr. Estes who was informed of these findings by the EMS providers. Consequently, stroke alert was called en route to the ED. Initial head CT showed NO acute intracranial findings. However, head CTA displayed complete and age indeterminant thrombosis of the R vertebral artery at the skull base. Acute dissection favored on this imaging study. Neck CTA revealed the following: * Occlusion of the distal cervical portion of the R vertebral artery, just proximal to the intracranial portion. This occlusion is most likely acute and underlying dissection could having similar appearance on imaging. Otherwise, unremarkable CTA of the neck. Minimal plaque w/in the proximal b/l internal carotid arteries w/o stenosis. * Incidental finding of mild medialization of the right vocal cord noted; right- sided vocal cord paralysis cannot be excluded. Dr. Estes spoke with [facility] who advised to proceed with TNK administration, no need for transfer at this time. Patient is now S/P TNK ADMINISTRATION IN THE ED. Repeat head CT once again showed NO evidence of acute intracranial findings [hemorrhage, mass effect or acute territorial ischemia]. She did complain of a headache in the ED and was given the following IV Tylenol and 1g IV magnesium. Other medications given in the ED include: * 20mg IV Labetalol * 20 mL IV IVF [NSS] * 8mg IV Zofran Labs performed in ED rather unremarkable, no acute electrolyte imbalances noted. --> Na 134, K 3.3, Cl 103, Ca 8.4 and Mag 1.9. Glucose is currently elevated at 165. Lyme screen negative. Dr. Aguilar saw this patient solo in the ED. Please refer to his addendum for additional HPI information (history from patient's perspective), as I did not talk to her directly. 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 Aguilar saw this patient solo in the ED. Please refer to his addendum for additional information, as I did not talk to her directly. Physical Exam Physical Exam: Dr. Aguilar saw this patient solo in the ED. Please refer to his addendum for physical examination findings, as I did not examine her myself. Results & Data Results & Data Vital Signs (Past 12 Hours) Vital Signs Temp Pulse Pulse Resp BP BP Pulse Ox 12/25/23 15:08 51 L 18 159/96 H 98 12/25/23 14:53 56 L 16 133/87 96 12/25/23 14:38 59 L 15 159/96 H 97 12/25/23 14:30 40 L 12/25/23 14:30 57 L 147/95 H 12/25/23 14:29 30 L 12/25/23 14:23 62 18 147/95 H 97 12/25/23 14:20 147/95 H 12/25/23 14:20 62 12 97 12/25/23 14:18 143/105 H 12/25/23 14:18 61 16 98 12/25/23 14:10 62 14 98 12/25/23 14:10 148/93 H 12/25/23 14:00 142/93 H 12/25/23 14:00 96 12/25/23 13:53 96 12/25/23 13:53 155/96 H 12/25/23 13:52 78 12/25/23 13:50 158/93 H 12/25/23 13:50 70 98 12/25/23 13:49 65 178/85 H 12/25/23 13:45 178/85 H 12/25/23 13:45 73 11 L 96 12/25/23 13:40 77 12 12/25/23 13:26 95 12/25/23 13:26 36.8 C 65 18 178/85 H 95 O2 Del Method O2 Flow Rate 12/25/23 15:08 Room Air 12/25/23 14:53 Room Air 12/25/23 14:38 Room Air 12/25/23 14:30 12/25/23 14:30 12/25/23 14:29 12/25/23 14:23 Room Air 12/25/23 14:20 12/25/23 14:20 12/25/23 14:18 12/25/23 14:18 12/25/23 14:10 12/25/23 14:10 12/25/23 14:00 12/25/23 14:00 12/25/23 13:53 12/25/23 13:53 12/25/23 13:52 12/25/23 13:50 12/25/23 13:50 12/25/23 13:49 12/25/23 13:45 12/25/23 13:45 12/25/23 13:40 12/25/23 13:26 Room Air 0 12/25/23 13:26 Room Air Laboratory Results Short CBC 12/25/23 Range/Units 13:42 WBC 9.16 (4.8-10.8) K/ul Hgb 12.6 (12.0-16.0) g/dl Hct 35.3 L (37.0-47.0) % Plt Count 365 (130-400) K/uL BMP 12/25/23 13:42 Sodium 134 L Potassium 3.6 Chloride 102 Carbon Dioxide 24 BUN 19 Creatinine 0.60 Glucose 164 H Calcium 8.4 L Liver Function 12/25/23 Range/Units 13:42 Total Bilirubin 0.5 (0.2-1.0) mg/dl AST 11 L (13-39) U/L ALT 11 (7-52) U/L Alkaline Phosphatase 60 (34-104) U/L Albumin 3.8 (3.4-5.0) gm/dl Diagnostic Findings Head CT 12/25/23 13:26 CT OF THE HEAD WITHOUT CONTRAST CLINICAL HISTORY: neuro deficit, acute stroke suspected. Slurred speech. Right- sided weakness. COMPARISON STUDY: Head CT December 13, 2011. CT DOSE: 1093.42 mGy.cm TECHNIQUE: Helical axial images of the head were obtained without IV contrast. Automated exposure control was utilized for the study. A dose lowering technique was utilized adhering to the principles of ALARA. FINDINGS: No acute intracranial hemorrhage, midline shift or mass effect is present. The ventricular system is unremarkable. The basal cisterns are patent. No extra-axial collections are present. There are no findings to suggest acute dural sinus thrombosis or acute territorial infarct. No significant calvarial abnormalities are present. Visualized portions of the sinuses and mastoid air cells are clear. IMPRESSION: No acute intracranial findings. ACT 112: Negative or not required by law. Electronically signed by: Davin Kumar M.D. 12/25/2023 1:41 PM Head CTA 12/25/23 13:26 CT ANGIOGRAM OF THE BRAIN CLINICAL HISTORY: Neurological deficit. Stroke like symptoms. Slurred speech. Right-sided weakness. COMPARISON STUDY: Unenhanced CT of the brain performed concurrently on 12/25/2023. TECHNIQUE: Following, following the IV administration of 120 cc of Optiray 320, CT angiogram of the brain was performed from the skull base to the vertex. Imag es are reviewed in the axial, sagittal, and coronal planes. 3-D MIPS images are created and assessed. IV contrast was administered without complication. A dose lowering technique was utilized adhering to the principles of ALARA. FINDINGS: Brain parenchyma: There is no evidence of hemorrhage, mass effect, or acute territorial ischemia by CT criteria noting angiographic phase technique. There i s no evidence of enhancing mass lesion on the angiogram phase images. No extra- axial fluid collection is seen. Mack-white matter differentiation is preserved. Ventricles, sulci, and cisterns: Normal in configuration. CT angiogram of the brain: The internal carotid arteries are widely patent, as are the anterior and middle cerebral arteries. There is complete occlusion of the right vertebral artery at the skull base. There is minimal retrocrural soft tissue just below the basilar, likely via retrograde flow. The left vertebral artery and basilar artery are widely patent. The posterior cerebral arteries are clear. There are bilateral posterior communicating arteries. No aneurysm or focus of high-grade stenosis is seen throughout the intracranial circulation. Dural sinuses: Clear as visualized. Orbits: The bony orbits are intact. The orbital contents are normal as visualized. Sinuses and mastoids: The visualized paranasal sinuses are clear. The mastoid air cells are well pneumatized. Calvarium: Unremarkable. IMPRESSION: 1. There is no evidence of hemorrhage, mass effect, or acute territorial ischemia by CT criteria noting angiographic phase technique. 2. There is complete and age indeterminant thrombosis of the right vertebral artery at the skull base. Acute dissection is favored. 3. The remaining intracranial vessels are patent.. ACT 112: Negative or not required by law. Electronically signed by: Francesco Mcgee M.D. 12/25/2023 1:58 PM Neck CTA 12/25/23 13:26 CT ANGIOGRAPHY OF THE NECK WITH CONTRAST CLINICAL HISTORY: neuro deficit, acute stroke suspected COMPARISON STUDY: No previous studies for comparison. Technique: CT angiography of the carotid and vertebral arteries was obtained using Optiray and 3D reconstruction on an independent workstation. NASCET criteria was utilized. Automated exposure control was utilized for the study. A dose lowering technique was utilized adhering to the principles of ALARA. Findings: Mild emphysema is incidentally noted within the lung apices. There is no cervical lymphadenopathy. No cervical spine fractures are noted. The bilateral common carotid and cervical internal carotid arteries are patent. There is minimal plaque within the proximal bilateral internal carotid arteries without stenosis. The left vertebral artery is unremarkable. Note is made of narrowing of the distal cervical portion of the right vertebral artery with abrupt occlusion, just proximal to the intracranial portion. This is shown on axial image 280 of 379. Intracranial portion of the right vertebral artery is occluded. There may be minimal contrast within the distal right vertebral artery, likely retrograde flow from the basilar artery. CTA of the head will be reported separately. There is no aneurysm within the neck. There is moderate plaque within the proximal right subclavian artery with mild stenosis. There is mild medialization of the right vocal cord. IMPRESSION: 1. Occlusion of the distal cervical portion of the right vertebral artery, just proximal to the intracranial portion. This occlusion is technically age indeterminate but likely acute and underlying dissection could have this imaging appearance. 2. Otherwise, unremarkable CTA of the neck. Minimal plaque within the proximal bilateral internal carotid arteries without stenosis. 3. Mild medialization of the right vocal cord. Right-sided vocal cord paralysis cannot be excluded. ACT 112: Negative or not required by law. Electronically signed by: Davin Kumar M.D. 12/25/2023 1:[address] 12/25/23 15:14 CT SCAN OF THE BRAIN WITHOUT IV CONTRAST CLINICAL HISTORY: Headache. COMPARISON STUDY: CT of the brain performed earlier the same day 12/25/2023. TECHNIQUE: Unenhanced axial CT scan of the brain is performed from the vertex to the skull base. A dose lowering technique was utilized adhering to the principles of ALARA. There is residual IV contrast from today's earlier angiogram examinations. CT DOSE: 547.75 mGy.cm FINDINGS: Brain parenchyma: The brain parenchyma is normal in appearance. There is no evidence of hemorrhage, mass effect, or acute territorial ischemia noting residual IV contrast throughout the intracranial circulation. Mack-white matter differentiation is preserved. No extra-axial fluid collection is seen. Ventricles, sulci, cisterns: Normal in configuration. Intracranial vasculature: The visualized intracranial vasculature at the skull base is normal in appearance. Calvarium: Unremarkable. Sinuses and mastoids: The visualized paranasal sinuses are clear. The mastoid air cells are well pneumatized. Orbits: The bony orbits are grossly intact. IMPRESSION: There is no evidence of hemorrhage, mass effect, or acute territorial ischemia noting residual IV contrast throughout the intracranial circulation. ACT 112: Negative or not required by law. Electronically signed by: Francesco Mcgee M.D. 12/25/2023 3:30 PM Medications Administered Discontinued Medications Acetaminophen (Acetaminophen 1000 Mg/100 Ml Iv) 1,000 mg IV NOW STA Stop: 12/25/23 15:15 Last Admin: 12/25/23 15:19 Dose: 1,000 mg Documented By: RAMYA Tenecteplase 16 mg/ Syringe 3.2 mls @ 38.4 mls/min IV NOW ONE; Protocol Stop: 12/25/23 13:58 Last Admin: 12/25/23 14:08 Dose: 38.4 mls/min Documented By: AM Co-signed By: JULIANA Magnesium Sulfate/Dextrose (Magnesium Sulfate / D5w) 1 gm in 100 mls @ 300 mls/hr IV NOW ONE Stop: 12/25/23 15:33 Last Admin: 12/25/23 15:31 Dose: 300 mls/hr Documented By: RAMYA Labetalol HCl (Labetalol Hcl Iv 5 Mg/Ml 20ml) 10 mg IV NOW STA Stop: 12/25/23 13:46 Last Admin: 12/25/23 13:49 Dose: 10 mg Documented By: AM Co-signed By: JULIANA Miscellaneous (Stat Iv/Im) 1 each N/A NOW STA Stop: 12/25/23 13:48 Last Admin: 12/25/23 14:31 Dose: 1 each Documented By: AM Ondansetron HCl (Ondansetron Inj 2 Mg/Ml 2 Ml Vial) 4 mg IV NOW STA Stop: 12/25/23 14:22 Last Admin: 12/25/23 14:28 Dose: 4 mg Documented By: AM Ondansetron HCl (Ondansetron Inj 2 Mg/Ml 2 Ml Vial) 4 mg IV NOW STA Stop: 12/25/23 15:15 Last Admin: 12/25/23 15:19 Dose: 4 mg Documented By: RAMYA Sodium Chloride (Sodium Chloride 0.9% 10ml Flush) 20 ml IV NOW STA Stop: 12/25/23 13:48 Last Admin: 12/25/23 14:08 Dose: 20 ml Documented By: AM ECG Additional Comments: EKG performed in the ED revealed the following: NSR w/ HR 72bpm, P-R Int 178ms, QRS Dur 94 and QT/QTc 420/459ms. Code Status & VTE Plan Code Status FULL CODE VTE Prophylaxis Plan VTE Prophylaxis will be ordered: Yes Supervising Physician Co-Signing Physician Notes Attending Addendum: care coordinated with BEAR Chanelle Harris please refer to her notes for full details, I agree with her notes patient seen and examined, records reviewed by myself as well on exam, patient seen resting in bed, not in distress reports posterior headache and nausea no other symptoms VS noted and reviewed oriented x 3, not in distress, speaks in sentences with no effort nor accessory muscle use normal rate, regular rhythm, no murmurs clear breath sounds bilaterally non distended, soft, nontender no bipedal edema, erythema, warmth no neuro deficits all labs noted and reviewed ASSESSMENT AND PLAN R Vertebral Artery Occlusion, with possible Dissection Stroke Alert called s/p TNK dizziness improving after TNK (+) headache, nausea repeat CT head: no hemorrhage admit to ICU for post TNK protocol Stroke work up Neurology consulted other diagnoses and plan of care as per BEAR Chanelle Aguilar MD
--- NOTE | 2023-12-25 16:54 | Electrocardiogram Report ---
Test Reason : Blood Pressure : / mmHG Vent. Rate : 072 BPM Atrial Rate : 072 BPM P-R Int : 178 ms QRS Dur : 094 ms QT Int : 420 ms P-R-T Axes : 054 074 054 degrees QTc Int : 459 ms Normal sinus rhythm Normal ECG When compared with ECG of 13-DEC-2011 06:44, No significant change was found Confirmed by Colin Cheng ([id number]) on 12/25/2023 4:53:27 PM Referred By: Confirmed By:Colin Cheng
[2023-12-25] MEDS ORDERED: ONDANSETRON INJ 2 MG/ML 2 ML VIAL IV PRN (17:36)
[2023-12-25] MEDS ORDERED: PHARMACIST DISCHARGE MED REC CONSULT PRN (18:22)
--- NOTE | 2023-12-25 18:33 | Critical Care Consultation ---
Date of Consultation December 25, 2023 Assessment & Plan (1) Acute ischemic stroke: Monitor neurovascular checks frequently. Head of bed above 35 degrees. Maintain euglycemia. Maintain systolic blood pressures under 180 and diastolic under 105. Avoid anticoagulants for next 24 hours or antiplatelets. Obtain MRI brain with and without contrast. Echo with bubble study. PT/OT/speech consults. Monitor telemetry. Follow-up neurology consult. Check lipids and A1c in the morning. 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 (3) Tobacco use disorder: Patient is a heavy smoker with approximately [id number] smoking history. Smoking cessation advised. Recommend low-dose lung cancer screening as outpatient. Plan Thank you for the consult. Will follow along with you. Patient's sister updated at bedside. Discussed with bedside RN and ER physician. CRITICAL CARE TIME - I have personally spent 37 minutes of critical care time in the direct management of this patient. This is a life/limb threatening event. This includes time spent evaluating patient, direct bedside care, chart review, placing orders, interpretation of diagnostic studies, discussion with consultants, patient, and family members, as well as other required patient management activities. This time is exclusive of all separately billable procedures, and teaching time and separate from and in addition to any other critical care service time. History of Present Illness Reason for Consultation: Status post TNKase administration Attending Physician: Hi Aguilar MD History of Present Illness 58-year-old female who presented to the ER due to sudden right-sided weakness in her arm, blurry vision and facial droop that occurred around 1 PM today. Stroke alert was called in the ER patient underwent CT head and neck protocol. Neck CTA revealed occlusion of the distal cervical portion of the right vertebral artery, just proximal to the intracranial portion concerning for acute dissection. Additionally incidental potential right-sided vocal cord paralysis was noted. Patient received TNKase and symptoms rapidly improved. She did have about of emesis x 3 and sinus bradycardia in the ER with improvement of symptoms. She also had sudden onset of headache and had a stat CT head status post TNK administration which did not reveal any evidence of intracranial bleed. She now complains of a 4 out of 10 headache that is mostly frontal in distribution. She feels that her weakness and dysarthric speech have improved substantially. Her sister is at bedside who notes that overall her neurological status seems to be at baseline, but her speech seems a bit slow. Patient is notably a heavy smoker and has smoked since the age of 17 about 1 pack/day. Initial NIH stroke scale of 7. Current stroke scale of 2. 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 Osteomyelitis of mandible Teeth missing due to caries Rash Facial swelling Dental abscess Cellulitis Family History Aunt Breast cancer Father Cancer Grandmother Diabetes Social History Smoking Status: Heavy tobacco smoker Tobacco Type: Cigarettes Do You Dip or Chew Tobacco: No; Hx Alcohol Use: No Hx Substance Use: No Preferred Language: Persian Communication Ability: Effective [place] Attacher Required: No Beliefs That Will Affect Care: None marital status: Current Living Situation: Spouse and Family current occupational status: employed Other Information That Helps Us Care for You: No Feels Safe at Home: Yes Safety Concerns: Feels Safe At This Time Assistive Devices: None Review of Systems Review of Systems: All systems reviewed & are unremarkable except as noted in HPI & below Physical Exam Physical Exam: Constitutional: Patient appears to be of their stated age. Patient is in no apparent distress. Patient is well-developed. Eyes: Pupils are equal round and reactive to light. Conjunctivae are normal. Anicteric sclera. Ears nose, mouth and throat: Mallampati class 2. Normal posterior oropharynx. Uvula is midline. Neck: Trachea is midline. Visual inspection is normal. Respiratory: Clear to auscultation bilaterally. No use of accessory muscles. No significant clubbing noted. Cardiovascular: Regular rate and rhythm. No murmurs. No edema. Gastrointestinal: Normal bowel sounds, soft, nontender and nondistended. No hepatosplenomegaly noted. Musculoskeletal: No cyanosis. Patient is able to move all extremities. Strength is 5 out of 5 in the upper and lower extremities. Skin: No rashes, warm dry and intact. Neurologic: No obvious focal neurological deficits seen. Psychiatric: Alert and oriented x3 with a euthymic affect. Results & Data Results & Data Vital Signs (Past 12 Hours) Vital Signs Temp Pulse Pulse Resp BP BP BP 12/25/23 18:00 46 L 14 118/71 12/25/23 17:30 36.5 C 48 L 18 127/72 12/25/23 17:00 36.3 C L 50 L 16 118/71 12/25/23 16:30 36.6 C 48 L 14 131/80 12/25/23 16:15 36.3 C L 48 L 16 144/83 H 12/25/23 16:08 47 L 18 144/83 H 12/25/23 15:53 45 L 18 149/94 H 12/25/23 15:47 36.3 C L 46 L 16 144/83 H 144/83 H 12/25/23 15:38 53 L 20 170/104 H 12/25/23 15:28 47 L 18 171/87 H 12/25/23 15:08 51 L 18 159/96 H 12/25/23 14:53 56 L 16 133/87 12/25/23 14:38 59 L 15 159/96 H 12/25/23 14:30 40 L 12/25/23 14:30 57 L 147/95 H 12/25/23 14:29 30 L 12/25/23 14:23 62 18 147/95 H 12/25/23 14:20 147/95 H 12/25/23 14:20 62 12 12/25/23 14:18 143/105 H 12/25/23 14:18 61 16 12/25/23 14:10 62 14 12/25/23 14:10 148/93 H 12/25/23 14:00 142/93 H 12/25/23 14:00 12/25/23 13:53 12/25/23 13:53 155/96 H 12/25/23 13:52 78 12/25/23 13:50 158/93 H 12/25/23 13:50 70 12/25/23 13:49 65 178/85 H 12/25/23 13:45 178/85 H 12/25/23 13:45 73 11 L 12/25/23 13:40 77 12 12/25/23 13:26 12/25/23 13:26 36.8 C 65 18 178/85 H Pulse Ox O2 Del Method O2 Flow Rate 12/25/23 18:00 98 Room Air 12/25/23 17:30 99 Room Air 12/25/23 17:00 98 Room Air 12/25/23 16:30 98 Room Air 12/25/23 16:15 99 Room Air 12/25/23 16:08 99 Room Air 12/25/23 15:53 97 Room Air 12/25/23 15:47 99 Room Air 12/25/23 15:38 98 Room Air 12/25/23 15:28 99 Room Air 12/25/23 15:08 98 Room Air 12/25/23 14:53 96 Room Air 12/25/23 14:38 97 Room Air 12/25/23 14:30 12/25/23 14:30 12/25/23 14:29 12/25/23 14:23 97 Room Air 12/25/23 14:20 12/25/23 14:20 97 12/25/23 14:18 12/25/23 14:18 98 12/25/23 14:10 98 12/25/23 14:10 12/25/23 14:00 12/25/23 14:00 96 12/25/23 13:53 96 12/25/23 13:53 12/25/23 13:52 12/25/23 13:50 12/25/23 13:50 98 12/25/23 13:49 12/25/23 13:45 12/25/23 13:45 96 12/25/23 13:40 12/25/23 13:26 95 Room Air 0 12/25/23 13:26 95 Room Air Coding Level of Care Code 35518 CRITICAL CARE 1ST 30-74M Diagnoses Acute ischemic stroke I63.9 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
[2023-12-25] MEDS: ICU Protocol for HYPERglycemia SCH (18:55)
[2023-12-25] MEDS ORDERED: Nursing to Pharmacy Communication SCH (20:00)
--- NOTE | 2023-12-25 23:04 | Magnetic Resonance Report ---
Exam(s): MRI HEAD Without Contrast EXAM: MR Head Without Intravenous Contrast CLINICAL HISTORY: Reason for exam: Stroke. TECHNIQUE: Magnetic resonance images of the head/brain without intravenous contrast in multiple planes. COMPARISON: No relevant prior studies available. FINDINGS: Brain: Multiple small areas of restricted diffusion within the posterior circulation as follows: 1.0 cm within the medial superior right cerebellum, 0.8 cm in the medial periventricular right cerebellum, and bilateral peripheral cerebral hemispheres measuring 1.3 cm on the left and 1.1 cm on the right consistent with multifocal acute/subacute infarcts. No hemorrhage. Ventricles: Unremarkable. No ventriculomegaly. Bones/joints: Unremarkable. No acute fracture. Sinuses: Unremarkable as visualized. No acute sinusitis. Mastoid air cells: Unremarkable as visualized. No mastoid effusion. Orbits: Unremarkable as visualized. IMPRESSION: Multiple small areas of acute/subacute infarcts in the posterior circulation measuring up to 1.3 cm. Communications: Call Doctor Stroke acute, subacute (but new), expanding Electronically signed by: George Dixon M.D. 12/25/23 23:03 PM
[2023-12-26] MEDS: ICU Protocol for HYPERglycemia SCH (00:17)
[2023-12-26 05:06] LABS: Albumin Level 4.4 gm/dl (3.4-5.0); BUN Creatinine Ratio 23.9 (10-20); Bilirubin Direct 0.1 mg/dl (0-0.2); Bilirubin,Total 0.7 mg/dl (0.2-1.0); Calcium 9.3 mg/dl (8.6-10.3); Chol HDL Ratio 2.9 (0-5); Creatinine Clr Calc Pharmacy 77.4 ml/min; Est GFR (African American) 111.5 ml/min; Est GFR (Non-African American) 96.2 ml/min; Magnesium 2.4 mg/dl (1.7-2.4); Phosphorus 3.8 mg/dl (2.5-4.9); Potassium 3.8 mmol/L (3.5-5.1); Total Protein 7.4 gm/dl (6.0-8.3)
[2023-12-26 05:08] LABS: Basophils # (auto) 0.02 K/uL (0.00-0.20); Basophils % (auto) 0.3 %; Eosinophils # (auto) 0.07 K/uL (0.00-0.50); Hematocrit (blood only) 37.3 % (37.0-47.0); Hemoglobin 13.5 g/dl (12.0-16.0); Immature Granulocytes # (auto) 0.01 K/uL (0.01-0.20); Immature Granulocytes % (auto) 0.1 %; Lymphocytes # (auto) 1.98 K/uL (1.20-3.40); Lymphocytes % (auto) 28.9 %; Mean Corpuscular Hemoglobin 32.2 pg (25.0-34.0); Mean Corpuscular Hgb Conc 36.2 g/dL (32.0-36.0); Mean Platelet Volume 9.1 fL (9.4-12.4); Monocytes # (auto) 0.55 K/uL (0.11-0.59); Neutrophils # (auto) 4.23 K/uL (1.40-6.50); Neutrophils % (auto) 61.7 %; Platelet Count 375 K/uL (130-400); RDW Coefficient of Variation 12.5 % (11.5-14.5); RDW Standard Deviation 40.6 fL (36.4-46.3); Red Blood Count 4.19 M/uL (4.20-5.40); White Blood Count 6.86 K/ul (4.8-10.8)
[2023-12-26 05:19] LABS: INR 0.9 (0.9-1.1); Partial Thromboplastin Time 26 Seconds (21-31); Prothrombin Time 10.2 Seconds (9.0-12.0)
[2023-12-26 07:01] LABS: Estimated Average Glucose 108 mg/dl; Hemoglobin A1C 5.4 % (4.5-5.6)
--- NOTE | 2023-12-26 07:48 | Electrocardiogram Report ---
Test Reason : Blood Pressure : / mmHG Vent. Rate : 041 BPM Atrial Rate : 041 BPM P-R Int : 192 ms QRS Dur : 094 ms QT Int : 504 ms P-R-T Axes : 036 069 060 degrees QTc Int : 415 ms Marked sinus bradycardia Abnormal ECG When compared with ECG of 25-DEC-2023 13:45, Vent. rate has decreased BY 31 BPM QT has shortened Confirmed by Colin Cheng ([id number]) on 12/26/2023 7:47:41 AM Referred By: REFERRED SELF Confirmed By:Colin Cheng
--- NOTE | 2023-12-26 11:29 | Neurology Consultation ---
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 Given the location she is not a candidate for anticoagulation as there is risk of pseudoaneurysm formation. After 24 hrs post-TNK would start aspirin 81mg and plavix 75mg daily without load for the next 3 months. Recommend referral to neuroendovascular at [facility] for follow-up and need for angiography of the R vert and posterior circulation. -- Aspirin 81mg daily and plavix 75mg daily for 3 months -- Start lipitor 40mg daily empirically for vessel inflammation -- Referral to neuroendovascular at [facility] for angio -- Depending on above would plan for at least repeat CTA of the head and neck at the 3 month timeframe -- Therapy evals -- Neuro follow-up in 4-6 weeks post-discharge, please contact us with any questions in the meantime Telehealth Consultation Telehealth Information Telehealth Information: I performed this visit using a real-time telehealth connection between my location and the patients location ([facility]). After connecting through interactive tele-video, patient was identified by name and date of and/or wristband check.Patient (or authorized healthcare assisted sales representative) was informed that this was a telemedicine visit and it was being conducted confidentially over secure lines. My office door was closed and no one else was present in the room with me.Patient (or authorized healthcare assisted sales representative) provided consent to proceed with the visit, expressed an understanding of privacy and security of the telemedicine visit, and gave permission to have a hospital assisted sales representative in the room in order to assist with the visit and to conduct portions of the visit, as needed. I informed the patient (or authorized healthcare assisted sales representative) that I reviewed their record and presented the opportunity for them to ask any questions regarding the visit today. The patient agreed to participate. History of Present Illness Reason for Consultation: Stroke Requesting Physician: Dr. Aguilar Attending Physician: Hi Aguilar MD History of Present Illness Nena Ramsey is a 58 yo F presenting with dizziness, slurred speech and R facial weakness as noticed by family. Stroke alert was activated and patient was given TNK. Found to have a R V4 dissection. Today she reports feeling back to her normal self. She was able to get on and off the MRI table without dizziness or gait instability. She was not previously taking any antiplatelet medications. She admits waking up with intermittent neck stiffness but has not seen a chiropractor in over a year. She has no history of stroke in the past. 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 Osteomyelitis of mandible Teeth missing due to caries Rash Facial swelling Dental abscess Cellulitis Family History Aunt Breast cancer Father Cancer Grandmother Diabetes Social History Smoking Status: Heavy tobacco smoker Tobacco Type: Cigarettes Do You Dip or Chew Tobacco: No; Hx Alcohol Use: No Hx Substance Use: No Preferred Language: Lao Communication Ability: Effective Horses Or Mules Teamster Required: No Beliefs That Will Affect Care: None marital status: Current Living Situation: Spouse and Family current occupational status: employed Other Information That Helps Us Care for You: No Feels Safe at Home: Yes Safety Concerns: Feels Safe At This Time Assistive Devices: None Review of Systems +dizziness, resolved Physical Exam Neurological Examination: Mental Status: Awake and alert. Oriented to person, place, and time. Fluent. Comprehension intact. Affect appropriate. Cranial Nerves: VII: Facial expression symmetric VIII: Hearing intact to voice Motor: Strength was symmetric and antigravity throughout. Pronator drift was absent. There were no abnormal movements. Coordination: Finger to nose and heel to smith were intact. Reflexes: Unable to assess over telemedicine Results & Data Vital Signs (Past 12 Hours) Vital Signs Temp Pulse Pulse Resp BP Pulse Ox O2 Del Method 12/26/23 10:00 36.4 C L 76 16 124/88 99 Room Air 12/26/23 09:00 36.6 C 89 22 95/69 L 98 Room Air 12/26/23 07:51 77 12/26/23 06:53 36.6 C 81 14 106/69 96 Room Air 12/26/23 05:53 36.6 C 75 17 99/63 L 97 Room Air 12/26/23 04:53 36.6 C 77 16 98/66 L 97 Room Air 12/26/23 03:53 36.6 C 75 14 102/53 L 98 Room Air 12/26/23 02:53 36.7 C 75 17 114/72 96 Room Air 12/26/23 01:53 36.5 C 76 16 111/70 99 Room Air 12/26/23 00:53 36.7 C 78 12 101/75 98 Room Air 12/26/23 00:00 63 12/25/23 23:53 36.6 C 65 17 106/71 97 Room Air Laboratory Results Abnormal lab results 12/25/23 12/25/23 12/25/23 Range/Units 13:42 13:45 14:06 RBC 4.00 L (4.20-5.40) M/uL Hct 35.3 L (37.0-47.0) % MCHC (32.0-36.0) g/dL MPV 9.2 L (9.4-12.4) fL Neut # (Auto) 6.69 H (1.40-6.50) K/uL Sodium 134 L (136-145) mmol/L POC Total CO2 22 L (24-31) mmol/L POC Creatinine 0.5 L (0.6-1.3) mg/dl BUN/Creatinine Ratio 31.7 H (10-20) Glucose 164 H (70-99(Fasting)) mg/dl POC Glucose 163 H (70-99) mg/dl POC Glucose (other) 165 H (70-99) mg/dl Calcium 8.4 L (8.6-10.3) mg/dl AST 11 L (13-39) U/L 12/25/23 12/26/23 12/26/23 Range/Units 18:56 00:08 04:30 RBC 4.19 L (4.20-5.40) M/uL Hct (37.0-47.0) % MCHC 36.2 H (32.0-36.0) g/dL MPV 9.1 L (9.4-12.4) fL Neut # (Auto) (1.40-6.50) K/uL Sodium (136-145) mmol/L POC Total CO2 (24-31) mmol/L POC Creatinine (0.6-1.3) mg/dl BUN/Creatinine Ratio 23.9 H (10-20) Glucose 103 H (70-99(Fasting)) mg/dl POC Glucose 127 H 106 H (70-99) mg/dl POC Glucose (other) (70-99) mg/dl Calcium (8.6-10.3) mg/dl AST 12 L (13-39) U/L Diagnostic Findings MRI brain - scattered cerebellar infarct CTA R V4 occlusion consistent with dissection
--- NOTE | 2023-12-26 12:53 | Hospitalist Progress Note ---
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 Patient started slurring her speech and had some slight right-sided facial asymmetry as well en route to the ED, per sign out from Dr. Estes who was informed of these findings by the EMS providers. Consequently, stroke alert was called en route to the ED. EKG performed in the ED revealed the following: NSR w/ HR 72bpm, P-R Int 178ms, QRS Dur 94 and QT/QTc 420/459ms. Initial head CT showed NO acute intracranial findings. However, head CTA displayed complete and age indeterminant thrombosis of the R vertebral artery at the skull base. Acute dissection favored on this imaging study. Neck CTA revealed the following: * Occlusion of the distal cervical portion of the R vertebral artery, just proximal to the intracranial portion. This occlusion is most likely acute and underlying dissection could having similar appearance on imaging. Otherwise, unremarkable CTA of the neck. Minimal plaque w/in the proximal b/l internal carotid arteries w/o stenosis. * Incidental finding of mild medialization of the right vocal cord noted; right- sided vocal cord paralysis cannot be excluded. Dr. Estes spoke with [facility] (formerly [facility]) who advised to proceed with TNK administration, no need for transfer at this time. Patient is now S/P TNK ADMINISTRATION. Repeat head CT once again showed NO evidence of acute intracranial findings [hemorrhage, mass effect or acute territorial ischemia]. She did complain of a headache in the ED and was given the following IV Tylenol and 1g IV magnesium. Other medications given in the ED include: * 20mg IV Labetalol * 20 mL IV IVF [NSS] * 8mg IV Zofran Labs performed in ED rather unremarkable, no acute electrolyte imbalances noted. --> Na 134, K 3.3, Cl 103, Ca 8.4 and Mag 1.9. Glucose is currently elevated at 165. Lyme screen negative. 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 * NO ASA w/in 24hrs of TNK administration, which was done @ 13:57 (12/25/2023). -Currently NPO, did not pass most recent dysphagia screening. Can repeat and then reassess in regard to advancing her diet w/ input of dietitian. -Continuous cardiac, SpO2 monitoring in the ICU. Bleeding precautions, frequent neuro checks and stroke scale assessments in place. -SBP currently holding steady in the 140s, most recent BP 144/83. HR now wavering b/n ~upper 40s-mid 50s. -Routine neurology consult placed [Dr. Colin Jaramillo], appreciate their i nput/recommendation(s). -Current activity is complete bedrest, PT/OT consults placed to further assess her ambulatory status. -Did place order for fall precautions in anticipation for upcoming therapy during hospitalization. -No need for supplemental oxygen therapy at this time, currently sating @ 99% on RA. -Additional ICU orders in place per protocol [i.e., measuring I&Os, daily weights, frequent vital signs assessments, etc.]. AM labs ordered and include the following: * CBC w/ diff, BMP, hepatic function panel, hemoglobin A1C, fasting lipid panel, magnesium/phosphorus, PTT and PT/INR. Tobacco use disorder -Smoking cessation education ordered, monitor for any signs of potential nicotine withdrawal. -Could potentially consider nicotine patch therapy during hospitalization. DVT Prophylaxis: SCDs - For now s/p TNK administration. Code Status: FULL CODE PCP: Colin Voss MD Dispo: Admit to ICU, as per above. Admission and Anticipated Discharge Date Admission Date: December 25, 2023 Subjective Follow-up for vertebral artery occlusion, s/p TNK, etc. seen resting in Bed comfortable, not in distress Patient's sister at the bedside In good spirits States she feels much better overall Denies dizziness, headache, nausea vomiting, confusion, Focal neurologic deficits, No other new symptoms Review of Systems Review of Systems: all noted and negative except for above Physical Exam Physical Exam: General- oriented x 3, not in distress, speaks in sentences with no effort or accessory muscle use Eyes- anicteric Neck- no JVD Lungs- clear breath sounds bilaterally, no rales/wheezes Heart- normal rate, regular rhythm; no murmurs Abdomen- normal bowel sounds, nondistended, soft, nontender Extremities- no pretibial edema, no calf tenderness Neuro- alert, oriented x 3; no gross focal neurologic deficits Skin- warm & dry Results & Data Results & Data Vital Signs (Past 12 Hours) Vital Signs Temp Pulse Pulse Resp BP Pulse Ox O2 Del Method 12/26/23 11:30 83 21 128/64 99 Room Air 12/26/23 11:00 36.5 C 78 17 101/80 98 Room Air 12/26/23 10:00 36.4 C L 76 16 124/88 99 Room Air 12/26/23 09:00 36.6 C 89 22 95/69 L 98 Room Air 12/26/23 07:51 77 12/26/23 06:53 36.6 C 81 14 106/69 96 Room Air 12/26/23 05:53 36.6 C 75 17 99/63 L 97 Room Air 12/26/23 04:53 36.6 C 77 16 98/66 L 97 Room Air 12/26/23 03:53 36.6 C 75 14 102/53 L 98 Room Air 12/26/23 02:53 36.7 C 75 17 114/72 96 Room Air 12/26/23 01:53 36.5 C 76 16 111/70 99 Room Air 12/26/23 00:53 36.7 C 78 12 101/75 98 Room Air all noted and reviewed including below
[2023-12-26] MEDS: ATORVASTATIN 40 MG TAB PO SCH (13:05)
--- NOTE | 2023-12-26 15:31 | CT Scan Report ---
CT OF THE HEAD WITHOUT CONTRAST CLINICAL HISTORY: 24 hour post TNK- eval for bleed COMPARISON STUDY: Head CT and MRI of the brain December 25, 2023. CT DOSE: 547.75 mGy.cm TECHNIQUE: Helical axial images of the head were obtained without IV contrast. Automated exposure con trol was utilized for the study. A dose lowering technique was utilized adhering to the principles o f ALARA. FINDINGS: No acute intracranial hemorrhage, midline shift or mass effect is present. Ventricular syst em is normal. Basal cisterns are patent. Several hypodense foci within the bilateral cerebellar hemis pheres correspond to the acute infarcts on MRI of December 25, 2023. These measure up to 1.6 cm. No new fo ci of infarction are identified by CT. There are no significant calvarial abnormalities. IMPRESSION: Expected evolution of multiple small acute infarcts within the bilateral cerebellar hemis pheres since MRI of December 25, 2023. No evidence for hemorrhagic conversion. No mass effect. ACT 112: Negative or not required by law. Electronically signed by: Davin Kumar M.D. 12/26/2023 3:30 PM
[2023-12-26] MEDS: CLOPIDOGREL BISULFATE 75 MG TAB PO ONE (17:06)
[2023-12-26] MEDS: ASPIRIN 81 MG ECTAB PO SCH (17:06)
[2023-12-26 19:15] VITALS: RESP 18
[2023-12-26] MEDS: MELATONIN 3 MG TAB PO PRN (21:28)
[2023-12-27 07:16] LABS: Basophils # (auto) 0.04 K/uL (0.00-0.20); Basophils % (auto) 0.5 %; Eosinophils # (auto) 0.12 K/uL (0.00-0.50); Eosinophils % (auto) 1.6 %; Hemoglobin 14.2 g/dl (12.0-16.0); Immature Granulocytes # (auto) 0.02 K/uL (0.01-0.20); Immature Granulocytes % (auto) 0.3 %; Lymphocytes # (auto) 2.77 K/uL (1.20-3.40); Lymphocytes % (auto) 37.8 %; Mean Corpuscular Hemoglobin 31.4 pg (25.0-34.0); Mean Corpuscular Hgb Conc 34.6 g/dL (32.0-36.0); Mean Corpuscular Volume 90.7 fL (80.0-100.0); Mean Platelet Volume 9.3 fL (9.4-12.4); Monocytes # (auto) 0.67 K/uL (0.11-0.59); Monocytes % (auto) 9.1 %; Neutrophils # (auto) 3.71 K/uL (1.40-6.50); Neutrophils % (auto) 50.7 %; Platelet Count 374 K/uL (130-400); RDW Coefficient of Variation 12.5 % (11.5-14.5); RDW Standard Deviation 41.1 fL (36.4-46.3); Red Blood Count 4.52 M/uL (4.20-5.40); White Blood Count 7.33 K/ul (4.8-10.8)
[2023-12-27 07:47] LABS: BUN Creatinine Ratio 34.7 (10-20); Bilirubin Direct 0.1 mg/dl (0-0.2); Bilirubin,Total 0.7 mg/dl (0.2-1.0); Calcium 8.8 mg/dl (8.6-10.3); Est GFR (African American) 106.2 ml/min; Est GFR (Non-African American) 91.7 ml/min; Magnesium 2.3 mg/dl (1.7-2.4); Phosphorus 3.2 mg/dl (2.5-4.9); Potassium 4.4 mmol/L (3.5-5.1); Total Protein 7.1 gm/dl (6.0-8.3)
[2023-12-27] MEDS: CLOPIDOGREL BISULFATE 75 MG TAB PO SCH (08:10)
--- NOTE | 2023-12-27 10:27 | Pharmacy Report ---
- Date of Service December 27, 2023 - Pharmacy CVA/TIA Medication Review Medications to Prevent Stroke handout has been added to the patients discharge packet. Antiplatelet(s) * Asa 81 mg daily + Plavix 75 mg daily x 3 months Cholesterol * High intensity statin: atorvastatin 40 mg daily DVT Prophylaxis * SCD knee Therapeutic Anticoagulation * No history of Afib/Aflutter noted * Per neurology she is not a candidate for anticoagulation as there is risk of pseudoaneurysm formation given location. Type 2 Diabetes * Patient does not have T2DM
[2023-12-27 11:36] VITALS: BP 113/72; PULSE 70; TEMP 98.8; O2SAT 98
--- NOTE | 2023-12-27 15:00 | Hospitalist Progress Note ---
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 Patient started slurring her speech and had some slight right-sided facial asymmetry as well en route to the ED, per sign out from Dr. Estes who was informed of these findings by the EMS providers. Consequently, stroke alert was called en route to the ED. 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 --Head CTA:There is no evidence of hemorrhage, mass effect, or acute territorial ischemia by CT criteria noting angiographic phase technique. There is complete and age indeterminant thrombosis of the right vertebral artery at the skull base. Acute dissection is favored. The remaining intracranial vessels are patent.. --Neck CTA: Occlusion of the distal cervical portion of the right vertebral artery, just proximal to the intracranial portion. This occlusion is technically age indeterminate but likely acute and underlying dissection could have this imaging appearance. Otherwise, unremarkable CTA of the neck. Minimal plaque within the proximal bilateral internal carotid arteries without stenosis. Mild medialization of the right vocal cord. Right-sided vocal cord paralysis cannot be excluded. --Repeat CT head Post TNK:Expected evolution of multiple small acute infarcts within the bilateral cerebellar hemispheres since MRI of December 25, 2023. No evidence for hemorrhagic conversion. No mass effect. --ECHO: Left ventricle is normal in size. Moderate concentric LVH. Left ventricle wall motion is normal. EF 65 to 70%. Grade 1 diastolic dysfunction. No interatrial shunt. No significant valvular disease. Right ventricle systolic pressure is mildly elevated at 30 to 40 mmHg --Lipid Panel: Within normal limits. LDL 90 -- HbA1c 5.4 --S/P TNK -- Appreciate critical care, neurology input --Continue aspirin, Plavix for 3 months --Continue Lipitor 40 mg daily --Needs follow-up with neurovascular surgery at [facility] for angio upon discharge --PT OT, speech eval completed --Needs repeat CT of the head and neck in 3 months --Needs follow-up with neurology on discharge in 4 to 6 weeks --Advised to quit smoking Tobacco use disorder --Counselled to quit smoking DVT Px SCDs for now Code Status: FULL CODE Admission and Anticipated Discharge Date Admission Date: December 25, 2023 Subjective Patient is seen and examined at bedside States that her right-sided weakness completely resolved Offers no new complaints today Denies any chest pain, dyspnea, dizziness, nausea, vomiting or abdominal pain Discussed with patient's family at bedside Plan to discharge home today Review of Systems Review of Systems: All systems reviewed & are unremarkable except as noted in Subjective Physical Exam Physical Exam: Physical Exam: Vitals signs as noted above General Appearance:Moderately built and nourished, no apparent distress Head: normocephalic, Atraumatic Eyes: normal inspection, EOMI Neck: supple, Trachea midline Respiratory/Chest: Normal breath sounds, CTA, No accessory muscle use Cardiovascular: S1, S2, No murmur Abdomen/GI:Soft, Non tender, Bowel sounds present Extremities/Musculoskeletal:normal inspection, no edema Neurologic/Psych:AAOX3, grossly no focal neurological deficits Skin: normal color, warm Results & Data Results & Data Vital Signs (Past 12 Hours) Vital Signs Temp Pulse Pulse Resp BP BP Pulse Ox 12/27/23 11:35 37.1 C 70 18 113/72 98 12/27/23 08:00 78 12/27/23 08:00 36.7 C 68 18 101/66 96 12/27/23 03:19 36.8 C 70 18 111/76 98 O2 Del Method 12/27/23 11:35 Room Air 12/27/23 08:00 12/27/23 08:00 Room Air 12/27/23 03:19 Room Air Laboratory Results Short CBC 12/27/23 Range/Units 06:08 WBC 7.33 (4.8-10.8) K/ul Hgb 14.2 (12.0-16.0) g/dl Hct 41.0 (37.0-47.0) % Plt Count 374 (130-400) K/uL BMP 12/27/23 06:08 Sodium 138 Potassium 4.4 Chloride 106 Carbon Dioxide 25 BUN 25 H Creatinine 0.72 Glucose 98 Calcium 8.8 Liver Function 12/27/23 Range/Units 06:08 Total Bilirubin 0.7 (0.2-1.0) mg/dl Direct Bilirubin 0.1 (0-0.2) mg/dl AST 13 (13-39) U/L ALT 11 (7-52) U/L Alkaline Phosphatase 68 (34-104) U/L Albumin 4.0 (3.4-5.0) gm/dl
--- NOTE | 2023-12-27 15:28 | Discharge Summary ---
Date of Service December 27, 2023 Admission HPI Per Admitting Provider Nena Ramsey is a 58y/o F with PMHx of tobacco use disorder, possible TIA [ 07/28/2011, per [facility] documentation], cervical disc degeneration, anxiety, migraines and other problems listed below who presented to the ED via EMS for evaluation of sudden-onset dizziness and lightheadedness beginning ~12:45pm today. Patient started slurring her speech and had some slight right-sided facial asymmetry as well en route to the ED, per sign out from Dr. Estes who was informed of these findings by the EMS providers. Consequently, stroke alert was called en route to the ED. Initial head CT showed NO acute intracranial findings. However, head CTA displayed complete and age indeterminant thrombosis of the R vertebral artery at the skull base. Acute dissection favored on this imaging study. Neck CTA revealed the following: * Occlusion of the distal cervical portion of the R vertebral artery, just proximal to the intracranial portion. This occlusion is most likely acute and underlying dissection could having similar appearance on imaging. Otherwise, unremarkable CTA of the neck. Minimal plaque w/in the proximal b/l internal carotid arteries w/o stenosis. * Incidental finding of mild medialization of the right vocal cord noted; right- sided vocal cord paralysis cannot be excluded. Dr. Estes spoke with [facility] who advised to proceed with TNK administration, no need for transfer at this time. Patient is now S/P TNK ADMINISTRATION IN THE ED. Repeat head CT once again showed NO evidence of acute intracranial findings [hemorrhage, mass effect or acute territorial ischemia]. She did complain of a headache in the ED and was given the following IV Tylenol and 1g IV magnesium. Other medications given in the ED include: * 20mg IV Labetalol * 20 mL IV IVF [NSS] * 8mg IV Zofran Labs performed in ED rather unremarkable, no acute electrolyte imbalances noted. --> Na 134, K 3.3, Cl 103, Ca 8.4 and Mag 1.9. Glucose is currently elevated at 165. Lyme screen negative. Dr. Aguilar saw this patient solo in the ED. Please refer to his addendum for additional HPI information (history from patient's perspective), as I did not talk to her directly. 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 Tobacco use disorder Discharge Data Allergies Allergy/AdvReac Type Severity Reaction Status Date / Time Penicillins Allergy Intermediate Hives Verified 12/25/23 16:03 CILLINS Allergy Intermediate HIVES Uncoded 12/25/23 16:03 Consultations 12/25/23 15:15 ED Decision to Admit Stat 12/25/23 15:29 Consult Neurology Routine 12/25/23 17:25 Consult Automotive Paint Technician Routine Procedures Performed Laboratory Results WBC 7.33 K/ul (4.8-10.8) 12/27/23 06:08 RBC 4.52 M/uL (4.20-5.40) 12/27/23 06:08 Hgb 14.2 g/dl (12.0-16.0) 12/27/23 06:08 POC Hgb 13.3 g/dl (12.0-16.0) 12/25/23 14:06 Hct 41.0 % (37.0-47.0) 12/27/23 06:08 POC Hct 39 % (37-47) 12/25/23 14:06 MCV 90.7 fL (80.0-100.0) 12/27/23 06:08 MCH 31.4 pg (25.0-34.0) 12/27/23 06:08 MCHC 34.6 g/dL (32.0-36.0) 12/27/23 06:08 RDW Std Deviation 41.1 fL (36.4-46.3) 12/27/23 06:08 RDW Coeff of Sofy 12.5 % (11.5-14.5) 12/27/23 06:08 Plt Count 374 K/uL (130-400) 12/27/23 06:08 MPV 9.3 fL (9.4-12.4) L 12/27/23 06:08 Immature Gran % (Auto) 0.3 % 12/27/23 06:08 Neut % (Auto) 50.7 % 12/27/23 06:08 Lymph % (Auto) 37.8 % 12/27/23 06:08 Wright % (Auto) 9.1 % 12/27/23 06:08 Eos % (Auto) 1.6 % 12/27/23 06:08 Baso % (Auto) 0.5 % 12/27/23 06:08 Neut # (Auto) 3.71 K/uL (1.40-6.50) 12/27/23 06:08 Lymph # (Auto) 2.77 K/uL (1.20-3.40) 12/27/23 06:08 Wright # (Auto) 0.67 K/uL (0.11-0.59) H 12/27/23 06:08 Eos # (Auto) 0.12 K/uL (0.00-0.50) 12/27/23 06:08 Baso # (Auto) 0.04 K/uL (0.00-0.20) 12/27/23 06:08 Immature Gran # (Auto) 0.02 K/uL (0.01-0.20) 12/27/23 06:08 PT 10.2 Seconds (9.0-12.0) 12/26/23 04:30 POC INR 0.9 (0.9-1.1) 12/25/23 14:00 INR 0.9 (0.9-1.1) 12/26/23 04:30 APTT 26 Seconds (21-31) 12/26/23 04:30 PTT Ratio 1.0 12/26/23 04:30 Carboxyhemoglobin 4.1 % THgb 12/25/23 13:57 POC Sodium 136 mmol/L (135-144) 12/25/23 14:06 Sodium 138 mmol/L (136-145) 12/27/23 06:08 POC Potassium 3.3 mmol/L (3.3-5.0) 12/25/23 14:06 Potassium 4.4 mmol/L (3.5-5.1) 12/27/23 06:08 POC Chloride 103 mmol/L (101-112) 12/25/23 14:06 Chloride 106 mmol/L (98-107) 12/27/23 06:08 Carbon Dioxide 25 mmol/L (21-32) 12/27/23 06:08 POC Total CO2 22 mmol/L (24-31) L 12/25/23 14:06 Anion Gap 7 (3-11) 12/27/23 06:08 POC Anion Gap 16.0 mmol/L (16-25) 12/25/23 14:06 POC BUN 16 mg/dl (7-18) 12/25/23 14:06 BUN 25 mg/dl (6-23) H 12/27/23 06:08 Creatinine 0.72 mg/dl (0.6-1.2) 12/27/23 06:08 POC Creatinine 0.5 mg/dl (0.6-1.3) L 12/25/23 14:06 Est Cr Clr Drug Dosing 71.0 ml/min 12/27/23 06:08 Est GFR ( Amer) 106.2 ml/min 12/27/23 06:08 Est GFR (Non-Af Amer) 91.7 ml/min 12/27/23 06:08 BUN/Creatinine Ratio 34.7 (10-20) H 12/27/23 06:08 Glucose 98 mg/dl (70-99(Fasting)) 12/27/23 06:08 POC Glucose 138 mg/dl (70-99) H 12/26/23 15:52 POC Glucose (other) 165 mg/dl (70-99) H 12/25/23 14:06 Estimat Average Glucose 108 mg/dl 12/26/23 04:30 Hemoglobin A1c 5.4 % (4.5-5.6) 12/26/23 04:30 Calcium 8.8 mg/dl (8.6-10.3) 12/27/23 06:08 POC Ioniz Calcium Rizwana 1.16 mmol/l (1.12-1.32) 12/25/23 14:06 Phosphorus 3.2 mg/dl (2.5-4.9) 12/27/23 06:08 Magnesium 2.3 mg/dl (1.7-2.4) 12/27/23 06:08 Total Bilirubin 0.7 mg/dl (0.2-1.0) 12/27/23 06:08 Direct Bilirubin 0.1 mg/dl (0-0.2) 12/27/23 06:08 AST 13 U/L (13-39) 12/27/23 06:08 ALT 11 U/L (7-52) 05/31/24 06:08 Alkaline Phosphatase 68 U/L (34-104) 12/27/23 06:08 Troponin I High Sens 2.4 pg/ml (0-14) 12/25/23 13:42 Total Protein 7.1 gm/dl (6.0-8.3) 12/27/23 06:08 Albumin 4.0 gm/dl (3.4-5.0) 12/27/23 06:08 Globulin 2.7 gm/dl (2.5-4.0) 12/25/23 13:42 Albumin/Globulin Ratio 1.4 (0.9-2) 12/25/23 13:42 Triglycerides 145 mg/dl (0-150) 12/26/23 04:30 Cholesterol 183 mg/dl (0-200) 12/26/23 04:30 LDL Cholesterol, Calc 90 mg/dl 12/26/23 04:30 VLDL Cholesterol, Calc 29 mg/dl (0-30) 12/26/23 04:30 HDL Cholesterol 64 mg/dl 12/26/23 04:30 Cholesterol/HDL Ratio 2.9 (0-5) 12/26/23 04:30 Nasal Screen MRSA (PCR) Negative (Negative) 12/25/23 16:25 Lyme Disease Screen Negative (Negative) 12/25/23 13:42 Impressions Head CTA 12/25/23 13:26 CT ANGIOGRAM OF THE BRAIN CLINICAL HISTORY: Neurological deficit. Stroke like symptoms. Slurred speech. Right-sided weakness. COMPARISON STUDY: Unenhanced CT of the brain performed concurrently on 12/25/2023. TECHNIQUE: Following, following the IV administration of 120 cc of Optiray 320, CT angiogram of the brain was performed from the skull base to the vertex. Images are reviewed in the axial, sagittal, and coronal planes. 3-D MIPS images are created and assessed. IV contrast was administered without complication. A dose lowering technique was utilized adhering to the principles of ALARA. FINDINGS: Brain parenchyma: There is no evidence of hemorrhage, mass effect, or acute territorial ischemia by CT criteria noting angiographic phase technique. There is no evidence of enhancing mass lesion on the angiogram phase images. No extra- axial fluid collection is seen. Mack-white matter differentiation is preserved. Ventricles, sulci, and cisterns: Normal in configuration. CT angiogram of the brain: The internal carotid arteries are widely patent, as are the anterior and middle cerebral arteries. There is complete occlusion of the right vertebral artery at the skull base. There is minimal retrocrural soft tissue just below the basilar, likely via retrograde flow. The left vertebral artery and basilar artery are widely patent. The posterior cerebral arteries are clear. There are bilateral posterior communicating arteries. No aneurysm or focus of high-grade stenosis is seen throughout the intracranial circulation. Dural sinuses: Clear as visualized. Orbits: The bony orbits are intact. The orbital contents are normal as visualized. Sinuses and mastoids: The visualized paranasal sinuses are clear. The mastoid air cells are well pneumatized. Calvarium: Unremarkable. IMPRESSION: 1. There is no evidence of hemorrhage, mass effect, or acute territorial ischemia by CT criteria noting angiographic phase technique. 2. There is complete and age indeterminant thrombosis of the right vertebral artery at the skull base. Acute dissection is favored. 3. The remaining intracranial vessels are patent.. ACT 112: Negative or not required by law. Electronically signed by: Francesco Mcgee M.D. 12/25/2023 1:58 PM Neck CTA 12/25/23 13:26 CT ANGIOGRAPHY OF THE NECK WITH CONTRAST CLINICAL HISTORY: neuro deficit, acute stroke suspected COMPARISON STUDY: No previous studies for comparison. Technique: CT angiography of the carotid and vertebral arteries was obtained using Optiray and 3D reconstruction on an independent workstation. NASCET criteria was utilized. Automated exposure control was utilized for the study. A dose lowering technique was utilized adhering to the principles of ALARA. Findings: Mild emphysema is incidentally noted within the lung apices. There is no cervical lymphadenopathy. No cervical spine fractures are noted. The bilateral common carotid and cervical internal carotid arteries are patent. There is minimal plaque within the proximal bilateral internal carotid arteries without stenosis. The left vertebral artery is unremarkable. Note is made of narrowing of the distal cervical portion of the right vertebral artery with abrupt occlusion, just proximal to the intracranial portion. This is shown on axial image 280 of 379. Intracranial portion of the right vertebral artery is occluded. There may be minimal contrast within the distal right vertebral artery, likely retrograde flow from the basilar artery. CTA of the head will be reported separately. There is no aneurysm within the neck. There is moderate plaque within the proximal right subclavian artery with mild stenosis. There is mild medialization of the right vocal cord. IMPRESSION: 1. Occlusion of the distal cervical portion of the right vertebral artery, just proximal to the intracranial portion. This occlusion is technically age indeterminate but likely acute and underlying dissection could have this imaging appearance. 2. Otherwise, unremarkable CTA of the neck. Minimal plaque within the proximal bilateral internal carotid arteries without stenosis. 3. Mild medialization of the right vocal cord. Right-sided vocal cord paralysis cannot be excluded. ACT 112: Negative or not required by law. Electronically signed by: Davin Kumar M.D. 12/25/2023 1:52 PM Brain MRI 12/25/23 18:22 CR Exam(s): MRI HEAD Without Contrast EXAM: MR Head Without Intravenous Contrast CLINICAL HISTORY: Reason for exam: Stroke. TECHNIQUE: Magnetic resonance images of the head/brain without intravenous contrast in multiple planes. COMPARISON: No relevant prior studies available. FINDINGS: Brain: Multiple small areas of restricted diffusion within the posterior circulation as follows: 1.0 cm within the medial superior right cerebellum, 0.8 cm in the medial periventricular right cerebellum, and bilateral peripheral cerebral hemispheres measuring 1.3 cm on the left and 1.1 cm on the right consistent with multifocal acute/subacute infarcts. No hemorrhage. Ventricles: Unremarkable. No ventriculomegaly. Bones/joints: Unremarkable. No acute fracture. Sinuses: Unremarkable as visualized. No acute sinusitis. Mastoid air cells: Unremarkable as visualized. No mastoid effusion. Orbits: Unremarkable as visualized. IMPRESSION: Multiple small areas of acute/subacute infarcts in the posterior circulation measuring up to 1.3 cm. Communications: Call Doctor Stroke acute, subacute (but new), expanding Electronically signed by: George Dixon M.D. 12/25/23 23:[address] 12/26/23 14:00 CT OF THE HEAD WITHOUT CONTRAST CLINICAL HISTORY: 24 hour post TNK- eval for bleed COMPARISON STUDY: Head CT and MRI of the brain December 25, 2023. CT DOSE: 547.75 mGy.cm TECHNIQUE: Helical axial images of the head were obtained without IV contrast. Automated exposure control was utilized for the study. A dose lowering technique was utilized adhering to the principles of ALARA. FINDINGS: No acute intracranial hemorrhage, midline shift or mass effect is present. Ventricular system is normal. Basal cisterns are patent. Several hypodense foci within the bilateral cerebellar hemispheres correspond to the acute infarcts on MRI of December 25, 2023. These measure up to 1.6 cm. No new foci of infarction are identified by CT. There are no significant calvarial abnormalities. IMPRESSION: Expected evolution of multiple small acute infarcts within the bilateral cerebellar hemispheres since MRI of December 25, 2023. No evidence for hemorrhagic conversion. No mass effect. ACT 112: Negative or not required by law. Electronically signed by: Davin Kumar M.D. 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 Patient started slurring her speech and had some slight right-sided facial asymmetry as well en route to the ED, per sign out from Dr. Estes who was informed of these findings by the EMS providers. Consequently, stroke alert was called en route to the ED. 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 --Head CTA:There is no evidence of hemorrhage, mass effect, or acute territorial ischemia by CT criteria noting angiographic phase technique. There is complete and age indeterminant thrombosis of the right vertebral artery at the skull base. Acute dissection is favored. The remaining intracranial vessels are patent.. --Neck CTA: Occlusion of the distal cervical portion of the right vertebral artery, just proximal to the intracranial portion. This occlusion is technically age indeterminate but likely acute and underlying dissection could have this imaging appearance. Otherwise, unremarkable CTA of the neck. Minimal plaque within the proximal bilateral internal carotid arteries without stenosis. Mild medialization of the right vocal cord. Right-sided vocal cord paralysis cannot be excluded. --Repeat CT head Post TNK:Expected evolution of multiple small acute infarcts within the bilateral cerebellar hemispheres since MRI of December 25, 2023. No evidence for hemorrhagic conversion. No mass effect. --ECHO: Left ventricle is normal in size. Moderate concentric LVH. Left ventricle wall motion is normal. EF 65 to 70%. Grade 1 diastolic dysfunction. No interatrial shunt. No significant valvular disease. Right ventricle systolic pressure is mildly elevated at 30 to 40 mmHg --Lipid Panel: Within normal limits. LDL 90 -- HbA1c 5.4 --S/P TNK -- Appreciate critical care, neurology input --Continue aspirin, Plavix for 3 months --Continue Lipitor 40 mg daily --Needs follow-up with neurovascular surgery at [facility] for angio upon discharge --PT OT, speech eval completed --Needs repeat CT of the head and neck in 3 months --Needs follow-up with neurology on discharge in 4 to 6 weeks --Advised to quit smoking Tobacco use disorder --Counselled to quit smoking DVT Px SCDs for now Code Status: FULL CODE Total Time Total Time Spent Total Time Spent (In Minutes): 57 minutes Discharge Plan Discharge Items Patient Disposition: Home - Self-Care Reason For Visit: ACUTE STROKE Discharge Diagnosis: Acute ischemic stroke 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 ) Radha Baltazar PA-C [Physician Rx Specialist] - (Date & Time 01/16/2024 11:20 AM Provider Radha Baltazar PA-C Department Neurology [facility] ) Brain Harper MD [Outside Practitioners] - (Date & Time 12/31/2023 11:20 AM Provider Antoinette Rodriguez MD Department [facility] ) Diet: Heart Healthy Addtl Attending Provider Instructions: Follow-up with your primary care physician on 12/31/2023 11:20 AM Follow up with your Neurologist Addie Baltazar PA-C on 01/16/2024 11:20 AM Follow-up with your neurovascular surgeon Dr. Lv Parker as recommended. Office will call you with appointment --Continue aspirin 81 mg, Plavix 75 mg daily for 3 months. Further re commendations as per your neurologist. --Start taking Lipitor 40 mg daily --Quit smoking tobacco as advised --You might need repeat CTA of the head and neck in 3 months as per your neurologist. Discuss with your neurologist on follow-up appointment for further instructions. Seek immediate medical attention if your symptoms reoccur or worsen Please take all medications as instructed on discharge list below. Please call if you have any questions or problems. You can reach a [facility] hospitalist on duty at [facility] 24 hours a day by calling [phone] Risk Factors for Stroke: You can reduce your chances of stroke by working with your medical provider to adopt a healthy lifestyle. Some specific ways to lower your chance of stroke are: * If you are a smoker, now is the time to stop smoking cigarettes * If you are diabetic, improve the control of your blood sugars * Avoid excessive amounts of alcohol * Control high blood pressure * Lose weight if you are overweight * Be sure to lead an active lifestyle * Eat a healthy diet low in salt, cholesterol and fat You should know about other risk factors for stroke that you are unable to control. These include: * Age 55 years or older * Male gender * Certain racial groups: , or / * Family History of Stroke, Mini stroke or Heart Attack * Sickle Cell Disease Follow Up: It is important for you to keep your follow up appointments with your medical provider. Who to Call and When: Medical Emergencies: Call 911 immediately if you experience any of the following warning signs and symptoms of Stroke: * Sudden numbness or weakness of the face, arm or leg, especially on one side of the body * Sudden confusion, trouble speaking or understanding * Sudden trouble seeing in one or both eyes * Sudden trouble walking, dizziness, loss of balance or coordination * Sudden severe headache with no cause Do not delay calling 911 if you experience any warning signs or symptoms of a stroke. Delay in seeking medical attention may affect what treatments can be given to you. . Pending Studies at Discharge: No Stand-Alone Forms: My [facility], Work/School Release, Smoking C essation, Medications to Prevent Stroke Medications and DC Order Prescriptions: New atorvastatin 40 mg Tablet 40 mg PO QAM Qty: 30 2RF clopidogrel 75 mg Tablet 75 mg PO QAM Qty: 30 2RF aspirin 81 mg Tablet,Delayed Release (Dr/Ec) 81 mg PO QAM Qty: 30 2RF Discharge Orders: Discharge Order (Routine); Ordered 12/27/23 Ordered By: Dev Overton Admission Data Admit Date/Time: 12/25/23 15:07 Attending Provider: Dev Overton Admit Provider: Hi Aguilar Primary Care Provider: Colin Voss Other Providers: Hi Aguilar; Colin Jaramillo; Glenn Guzman
[2023-12-27] MEDS: STROKE PATIENT DISCHARGE STA (16:46)
== END 2023-12-27 17:29 | disposition home or self-care (01) | DRG 61 ==
LOC: ED 13:25 → SUATTDRO 15:07 → 1E 15:07 → 2S 12-26 18:45
DX: R11.0 Nausea; Z88.0 Allergy status to penicillin; I77.74 Dissection of vertebral artery; Z79.899 Other long term (current) drug therapy; R51.9 Headache, unspecified; R29.810 Facial weakness; Z79.02 Long term (current) use of antithrombotics/antiplatelets; R42 Dizziness and giddiness; F17.210 Nicotine dependence, cigarettes, uncomplicated; R29.707 NIHSS score 7; Z86.73 Personal history of transient ischemic attack (TIA), and cerebral infarction without residual deficits; I63.011 Cerebral infarction due to thrombosis of right vertebral artery; R47.81 Slurred speech; Z79.82 Long term (current) use of aspirin

== ENCOUNTER 2024-10-05 06:30 | Observation (INO) ==
--- OUTSIDE RECORDS SUMMARY | 2024-10-05 06:36 | External Medical Summary ---
Author Name Unknown Address Unknown Organization [id number]:[facility] [place] - [address] [place] [address] Laboratory Report Ordering Provider Test Date Status LENA BARTON 09/24/2024 09:54:19 Final Observation Date Value Abnormality Reference (Units ) Status HbA1C 09/24/2024 09:54:19 5.7 Above high normal 4. 0-5.6 (%) Final The use of HbA1c to monitor glycemic status is based on normal hemoglobin and HbA composition. This test should not be used in patients with abnormal hemoglobin that affects the half life of the red blood cell or the in vivo glycation rates. Glucose, estimated average 09/24/2024 09:54:19 117 <126 (mg/dL) Final Performing Location [facility] [place] [facility] [address] [facility] [address]
--- OUTSIDE RECORDS SUMMARY | 2024-10-05 06:36 | External Medical Summary ---
Author Name Unknown Address Unknown Organization [id number]:[facility] [place] [address] [facility] [place] [address] Laboratory Report Ordering Provider Test Date Status LENA BARTON 09/24/2024 09:54:19 Final Observation Date Value Abnormality Reference (Units ) Status Triglyceride 09/24/2024 09:54:19 51 <=174 ( mg/dL) Final Triglyceride Reference Range s (mg/dL):
<150 Acceptable
150-174 Borderline high
175-499 High
>=500 Very high Cholesterol 09/24/2024 09:54:19 122 <200 (mg /dL) Final Total Cholesterol Reference Ranges (mg/dL):
<200 Desirable
200-239 Borderline high
>=240 High HDL 09/24/2024 09:54:19 61 >49 (mg/dL ) Final HDL Cholesterol Reference Ra nges (mg/dL):
>=60 High (Desirable)
<50 Low (Undesirable) For Females
<40 Low (Undesirable) For Males NON-HDL CHOLESTEROL 09/24/2024 09:54:19 61 <=159 (mg/dL) Final Non-HDL Cholesterol Referenc e Range (mg/dL):
<100 Target level for high risk ASCVD patient
<130 Optimal for general population
130-159 Near optimal for general population
160-189 Borderline High
190-219 High
>=220 Very High LDL, (calculated) 09/24/2024 09:54:19 51 <= 129 (mg/dL) Final LDL Cholesterol Reference Ra nges (mg/dL):
<70 Target level for high risk ASCVD patient
<100 Optimal for general population
100-129 Near optimal for general population
130-159 Borderline high
160-189 High
>=190 Very high Performing Location [facility] [place] - [address] [facility] [address]
--- OUTSIDE RECORDS SUMMARY | 2024-10-05 06:36 | External Medical Summary ---
Author Name Unknown Address Unknown Organization [id number]:LABORATORY [facility] - [address] [place] [address] Laboratory Report Ordering Provider Test Date Status LENA BARTON 09/24/2024 09:54:19 Final Observation Date Value Abnormality Reference (Units ) Status Glucose 09/24/2024 09:54:19 80 70-120 (mg /dL) Final Performing Location LABORATORY [facility] - [address] [place] [address]
--- OUTSIDE RECORDS SUMMARY | 2024-10-05 06:36 | External Medical Summary | Summary of Care ---
Author Name Unknown Organization [facility] Address [address] [place] [place] [place] [address] Phone [phone] Care Team Providers Care Product Developer Name Role Phone Janelle Weber DO Primary Care Provider Reason for Visit * Reason Comments Outpatient Testing Encounter Details Date Type Department Care Team (Late st Contact Info) Description 09/24/2024 9:50 AM EST Laboratory Laboratory, [facility] [address] [facility] [place] [address] [facility] [address] [facility] [id number] Screening for lipoid disorders; Screening for diabetes mellitus Allergies Active Allergy Reactions Criticality Noted Date Comments Sulfamethoxazole-Trimethoprim Rash Low 2014 Penicillins 10/05/1997 hives documented as of this encounter (statuses as of 09/24/2024) Medications Melatonin 3 MG Oral Tablet Take 1 Tablet by mouth at bedtime. 90 Tablet 12/31/2023 Active Atorvastatin Calcium 40 MG Oral Tablet (Lipitor) Take 1 Tablet by mouth in the morning. In the morning.. 30 Tablet 11 05/06/2024 Active EQ Aspirin Adult Low Dose 81 MG Oral Tablet Delayed Release Take 1 Tablet by mouth in the morning. In the morning.. 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 12/31/2023 Fibroid uterus 01/25/2012 Overweight (BMI 25.0-29.9) 09/13/2011 Overview (09/13/2011): bmi= 25.41 09/13/11 Dysfunction of eustachian tube 09/13/2011 History of TIA (transient ischemic attack) 08/02 Degeneration of cervical intervertebral disc 06/2011 Migraine without aura and wi thout status migrainosus, not intractable 08/12/2006 documented as of this encounter (statuses as of 09/24/2024) Resolved Problems Problem Noted Date Diagnosed Date Resolved Date Dental abscess 05/08/2016 06/22/2019 Dermatitis 04/22/2015 06/22/2019 History of insect bite 04/22/201506/22 Tendinitis of left rotator cuff 01/14/2015 06/22/2019 Left shoulder pain 01/14/2015 9 Epicondylitis, lateral, left 01/14/2015 06/22/2019 Left elbow pain 01/14/2015 06/22/2019 Screening for diabetes mellitus 01/14/2015 06/22/2019 Viral URI 03/26/2014 06/22/2019 Urinary retention 02/24/2013 06/22/2019 Sleep disturbance 02/24/2013 06/22/2019 Left shoulder pain 05/06/2012 9 Rotator cuff syndrome 05/06/20122018 Routine medical exam 02/26/2012 019 Pre-op exam 01/25/2012 06/22/2019 Pulsatile tinnitus 09/13/2011 9 Chronic rhinitis 09/13/2011 06/22/2019 Tobacco use disorder 08/02/2011 024 Fibroid uterus 07/11/2011 06/22/2019 Overview (07/11/2011): 7 cm anterior fibroid PATELLOFEMORAL PAIN SYNDROME, RIGHT KNEE 05/28/2011 06/22/2019 Urinary incontinence 05/28/2011 019 Overview (04/29/2017): ICD-10 update of inactive term Temporomandibular joint diso rders, unspecified 04/09/2011 06/22/2019 Subjective tinnitus 04/09/2011 06/22/20 19 Other specified forms of hearing loss 04/09/2011 06/22/2019 Chronic otitis externa 04/09/201106/22 Other general medical examin ation for administrative purposes 10/27/2008 08/28/2011 Elevated blood pressure, situational 09/27/2008 08/28/2011 VIRAL GASTROENTERITIS 08/12/20062018 Nausea with vomiting 08/12/2006 019 GANGLION, RIGHT VOLAR WRIST 01/14/2006 06/22/2019 ADVANCE DIRECTIVE INFORMATION 07/14/2005 06/22/2019 Overview (07/14/2005): No, Advance Directive brochure given to patient. Painful respiration 06/20/2005 03/20/20 06 BACKACHE NOS 06/20/2005 03/20/2006 ACUTE SINUSITIS, LEFT 05/09/20042005 PULSATILE TINNITUS 05/09/2004 2 DYSFUNCT EUSTACHIAN TUBE 05/09/2004 Chronic rhinitis 05/09/2004 09/13/2011 Tobacco use disorder 05/09/2004 009 Overview (09/02/2008): Resolved per Duplicate Protocol #2. Anxiety state 05/09/2004 06/22/2019 Chest pain 04/28/2004 03/20/2006 Shortness of breath 04/28/2004 03/20/20 06 DIZZINESS AND GIDDINESS 04/28/200402/27 HOT FLASHES 04/28/2004 03/20/2006 Tobacco use disorder 04/28/2004 012 documented as of this encounter (statuses as of 09/24/2024) Immunizations Name Administration Dates Next Due COVID-19 mRNA, LNP-s, No Pre serve, 2-Dose Series (Moderna) 04/29/2021 PPD 05/16/2021, 5,07/01/2015,02/25,02/18/2013,03/06/2012,02/26/2012 Pneumococcal Polysaccharide PPV23 (Pneumovax) 06/26/2010(Deferred: Patient Refused) documented as of this encounter Social History Tobacco Use Types Packs/Day Years Used Date Smoking Tobacco: Former Cigarettes 0.7 30 Passive Smoke Exposure: Past Smokeless Tobacco: Never Comments:began at age 16 bin t for 3 months, now up to 2 per day Alcohol Use Standard Drinks/Week Comments Not Currently 0 (1 standard drink = 0.6 oz pur e alcohol) PHQ-2 Answer Date Recorded PHQ Adult Total Score 0 12/31/2023 Hunger Vital Sign Answer Date Recorded Within the past 12 months, y ou worried that your food would run out before you got the money to buy more. Patient declined Within the past 12 months, t he food you bought just didn't last and you didn't have money to get more. Patient declined 10/2023 Childcare Answer Date Recorded Do you feel overwhelmed with taking care of a child, family member or friend? No 12/31/2023 Does your family need help f inding childcare? (Household - for ages 0-17 years) Not on file 12/31/2023 Clothing Answer Date Recorded Have you been unable to get clothing when it was really needed? No 12/31/2023 Is your family able to get c lothes or diapers when needed? (Household - for ages 0-17 years) Not on file 12/31/2023 Personal Safety Answer Date Recorded Do you feel unsafe or have concerns for your saf ety? No 12/31/2023 Do you have concerns for you r family's safety? (Household - for ages 0-17 years) Not on file 12/31/2023 Utilities Answer Date Recorded Do you have trouble paying y our heating, water, or electric bill? No 12/31/2023 Is your family able to pay t he heat, water, or electric bill? (Household - for ages 0-17 years) Not on file 12/31/2023 Does your family have access to good internet? (Household - for ages 0-17 years) Not on file 12/31/2023 Employment Status Answer Date Recorded Are you unemployed or without regular income? No 12/31/2023 Does the household have a re gular source of income? (Household - for ages 0-17 years) Not on file 12/31/2023 Social Connections Answer Date Recorded How often do you feel lonely or isolated from th ose around you? Never 12/31/2023 Financial Resource Strain Answer Date R ecorded Do you have any trouble payi ng for your medications, or do you think you might in the future? No 12/31/2023 Does your family have troubl e paying for medicine? (Household - for ages 0-17 years) Not on file 12/31/2023 Transportation Needs Answer Date Record ed READ ONLY Do you have troubl e getting a ride to medical visits or work? Never True 12/31/2023 Does your family have a hard time getting a ride to doctors visits? (Household - for ages 0-17 years) Not on file 12/31/2023 Has lack of transportation k ept you from medical appointments, meetings, work, or from getting things needed for daily living? Check all that apply. (Adult - for ages 18 years and over) Not on file 12/31/2023 Do you (or your family) have trouble finding or paying for a ride (transportation)? (Household - for ages 0-17 years) Not on file 12/31/2023 Housing Stability Answer Date Recorded Do you currently live in a s helter or have no steady place to sleep at night? No 12/31/2023 READ ONLY Do you think you a re at risk of becoming homeless? No 12/31/2023 Does your family worry about paying for your home or becoming homeless? (Household - for ages 0-17 years) Not on file 0 12/31/2023 Are you homeless or worried that you might be in the future? (Adult - for ages 18 years and over) Not on file Are you (or your family) daniel eless or worried that you might be in the future? (Household - for ages 0-17 years) Not on file Food Insecurity Answer Date Recorded Do you need food for this week? No 12/31/2023 Are you able to get enough f ood for your family? (Household - for ages 0-17 years) Not on file 12/31/2023 Does your family need food t his week? (Household - for ages 0-17 years) Not on file 12/31/2023 Do you always have enough fo od for your family? (Household - for ages 0-17 years) Not on file 12/31/2023 Food Insecurity Answer Date Recorded Within the past 12 months, y ou worried that your food would run out before you got the money to buy more. Patient declined Within the past 12 months, t he food you bought just didn't last and you didn't have money to get more. Patient declined 10/2023 Do you need food for this week? No 12/31/2023 Comments No Sex and Gender Information Value Date Recorded Sex Assigned at Female 06/12/2019 1:32 PM EST Legal Sex Female 7:06 AM EST Gender Identity Female 06/12/2019 1:32 PM EST Sexual Orientation Straight 06/12/2019 1: 32 PM EST documented as of this encounter Plan of Treatment Upcoming Encounters Date Type Department Care Team (Late st Contact Info) Description 01/05/2025 3:40 PM EDT Office Visit Family Practice [facility] [address] [facility] [place] [address] Janelle Weber, [address] [facility] [place] [address] 04/05/2025 3:45 PM EDT Imaging Radiology [facility] [address] [facility] [address] [place] [id number] 07/05/2025 11:00 AM EST Office Visit Cardiology [facility], [address] [place] [phone] Jerman Cullen CRNP [address] [place], [place] [phone] Pending Results Name Type Priority Associated Diagnoses Date /Time LIPID PANEL WITH DIRECT LDL IF TG IS HIGH Lab Routine Screening for lipoid disorders 09/24/2024 9:54 AM EST HEMOGLOBIN A1C Lab Routine Screening for diabetes mellitus 09/24/2024 9:54 AM EST GLUCOSE Lab Routine Screening for diabetes mellitus 09/24/2024 9:54 AM EST Health Maintenance Due Date Last Done Comments HPV/Co-Test 1994 DTap/Tdap Vaccines (1 - Tdap) 12/07/2000 12/06/2000, 07/29/1993 Cologuard 2009 Colonoscopy 2009 Colorectal Cancer Screening 2009 Fecal Occult Blood Test 2009 Sigmoidoscopy 2009 Pneumococcal Vaccine: 50+ Years (1 of 1 - PCV) 2014 Zoster Vaccines (1 of 2) 2014 Cervical Cancer Screening 09/20/2019 Pap Smear 09/20/2019 09/20/2016, 05/30, 06/17/2013, Additional history exists COVID-19 Vaccine ( season) 2024 04/29/2021 Influenza Vaccine (FLU shot) (#1) 2024 Depression Screening 12/30/2024 12/31/2023 Mammogram 05/26/2025 05/26/2024, 03/29, 09/11/2016, Additional history exists Diabetes Screening 04/13/2027 04/13/2024, 0 11/21/2016, 03/08/2015, Additional history exists HIV Screening Discontinued HPV (Gardasil) Vaccine Aged Out No lo nger eligible based on patient's age to complete this topic Hepatitis B Vaccine Aged Out No longe r eligible based on patient's age to complete this topic Hepatitis C Screening Discontinued MENINGOCOCCAL (MENACTRA/MENVEO) Aged Out No longer eligible based on patient's age to complete this topic Meningitis B Vaccine (Bexsero/Trumemba) Aged Out No longer eligible based on patient's age to complete this topic documented as of this encounter Medical Devices Not on filedocumented as of this encounter Visit Diagnoses Diagnosis Screening for lipoid disorders Screening for diabetes mellitus documented in this encounter Care Teams Product Developer Relationship Specialty Start Date End Date Janelle Weber DO [address] [place] [address] PCP - General Family Medicine 02/08/24 documented as of this encounter
--- NOTE | 2024-10-05 07:15 | Emergency Department Note ---
ED Visit Note .
[2024-10-05] MEDS: CLINDAMYCIN/D5W 600 MG/50 ML BAG IV ONE (07:57)
[2024-10-05 08:07] LABS: Basophils # (auto) 0.05 K/uL (0.00-0.20); Basophils % (auto) 0.5 %; Eosinophils # (auto) 0.13 K/uL (0.00-0.50); Eosinophils % (auto) 1.4 %; Hematocrit (blood only) 40.8 % (37.0-47.0); Hemoglobin 13.9 g/dl (12.0-16.0); Immature Granulocytes # (auto) 0.04 K/uL (0.01-0.20); Immature Granulocytes % (auto) 0.4 %; Lymphocytes # (auto) 1.49 K/uL (1.20-3.40); Lymphocytes % (auto) 15.8 %; Mean Corpuscular Hemoglobin 30.8 pg (25.0-34.0); Mean Corpuscular Hgb Conc 34.1 g/dL (32.0-36.0); Mean Corpuscular Volume 90.3 fL (80.0-100.0); Mean Platelet Volume 9.5 fL (9.4-12.4); Monocytes # (auto) 0.72 K/uL (0.11-0.59); Monocytes % (auto) 7.6 %; Neutrophils # (auto) 7.01 K/uL (1.40-6.50); Neutrophils % (auto) 74.3 %; Platelet Count 333 K/uL (130-400); RDW Coefficient of Variation 11.9 % (11.5-14.5); Red Blood Count 4.52 M/uL (4.20-5.40); White Blood Count 9.44 K/ul (4.8-10.8)
[2024-10-05 08:14] LABS: Albumin Globulin Ratio 1.4 (0.9-2); Albumin Level 4.6 gm/dl (3.4-5.0); BUN Creatinine Ratio 23.5 (10-20); Bilirubin,Total 1.4 mg/dl (0.2-1.0); Calcium 9.8 mg/dl (8.6-10.3); Creatinine Clr Calc Pharmacy 75.4 ml/min; Globulin 3.2 gm/dl (2.5-4.0); Total Protein 7.8 gm/dl (6.0-8.3)
--- NOTE | 2024-10-05 09:02 | History & Physical Report ---
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 Bilateral lower dental pain and swelling History of suspected chronic osteomyelitis Started on oral clindamycin on Saturday, has taken 5 doses Afebrile, no leukocytosis, does not meet sepsis criteria ECG and CXR without acute findings RCRI score 1 out of 6 or 6% risk of major cardiac event No recurrent neuro symptoms since stroke in November. Compliant with DAPT, statin Discussed with Dr. Tena who plans to take patient to OR this afternoon Hold aspirin and plavix today, resume in AM Continue IV Clindamycin History of CVA 2/2 R vertebral artery occlusion in November 2023 Admitted at [facility] in November, underwent TNK. No residual deficits and was discharged on DAPT and statin Followed up with [place]vascular surgery [place] [facility] [place] for evaluation of an infundibulum versus aneurysms of the right MCA found incidentally - cerebral angiogram showed normal variant Hold aspirin, plavix today, resume in AM Stable thoracic aneurysm 2D echo around this time that revealed a mild proximal ascending thoracic aneurysm of 4cm in Mar 2024 with follow up echo scheduled for this March DVT Ppx: SCDs Code status: FULL PCP: Tia Dispo: observation med/surg - planning for OR this afternoon Patient seen in collaboration with Dr. Aguilar. Please see addendum. I spent a total of 75 minutes coordinating, documenting, and providing care for this patient excluding time spent in the performance of separately billed services or time spent by another provider/QHP. History of Present Illness Chief Complaint: dental pain Primary Care Provider: Colin Voss MD This is a 59-year-old female with PMH of 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 Contacted Dr. Tena on Art due to left molar pain and swelling and was prescribed oral clindamycin, which she is taken over the weekend. Swelling persisted over the weekend, prompting ED visit this AM. Pain free at time of interview. Has been tolerating a soft diet but it is getting more difficult. Did not eat anything yet this AM and did not take aspirin or plavix yet today. Quit smoking after November 2024 and now occasionally uses her daughter's vape pen. Has followed closely with Dr. Tena over the past few months with suspected chronic osteomyelitis of the upper R and left jaw. No F/C, lightheadedness, CP, SOB, N/V, abd pain, dysuria, diarrhea or constipation. Was admitted for CVA 2/2 R vertebral artery occlusion in November 2023 at [facility] and underwent TNK at that time. No residual deficits and was discharged on DAPT and statin. Followed up with neurovascular surgery at [facility] in June for evaluation of an infundibulum versus aneurysms of the right MCA that was found incidentally during stroke workup for an occlusion of the right vertebral artery. Diagnostic cerebral angiogram by Dr. Dr. Parker in Jun 2024 revealed R MCA trifurcation with slight broadening in the trifurcation itself, normal variant. Has continued with aspirin, plavix and statin compliance without any further issues. No stroke sequelae. Underwent a 2D echo around this time that revealed a mild proximal ascending thoracic aneurysm of 4cm in Mar 2024 with follow up echo scheduled for this March. Allergies Allergy/AdvReac Type Severity Reaction Status Date / Time Penicillins Allergy Intermediate Hives Verified 09/08/24 15:42 Home Medications Medication Instructions Recorded Confirmed Type aspirin 81 mg tablet,delayed 81 mg PO QAM #30 tabs 12/27/23 10/05/24 Rx release atorvastatin 40 mg tablet 40 mg PO QAM #30 tabs 12/27/23 10/05/24 Rx clopidogrel 75 mg tablet 75 mg PO QAM #30 tabs 12/27/23 10/05/24 Rx Saccharomyces boulardii 250 mg 250 mg PO BID #20 caps 02/13/24 10/05/24 Rx capsule (Florastor) chlorhexidine gluconate 0.12 % 15 ml mucous membrane BID oral 10/02/24 10/05/24 Rx mouthwash (Peridex) infection #473 mL clindamycin HCl 300 mg capsule 300 mg PO TID oral infection 10 10/02/24 10/05/24 Rx days #30 caps cholecalciferol (vitamin D3) 1,250 50,000 unit PO WK 10/05/24 10/05/24 History mcg (50,000 unit) tablet melatonin 3 mg tablet 3 mg PO HS PRN Insomnia 10/05/24 10/05/24 History Past Med/Surg History Problem List (Updated 10/05/24 @ 15:24 by Rajinder Navarro PA-C) Osteomyelitis of mandible Facial abscess (Acute) Acute sinus infection Leukoplakia of oral mucosa/tongue Infected dental caries (Acute) Radiolucent lesion in maxilla Tobacco use disorder (Acute) 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) Acute ischemic stroke (Acute) Medical History Thoracic aortic aneurysm Osteomyelitis Leiomyoma of uterus, unspecified (12/08/12) 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 Teeth missing due to caries Rash Facial swelling Dental abscess Cellulitis Surgical History Tubal ligation status Family History Aunt Breast cancer Father Cancer Grandmother Diabetes Social History Smoking Status: Former smoker Tobacco Type: E-cigarettes / Vaping Second Hand Exposure: No; Do You Dip or Chew Tobacco: No; Tobacco Cessation Education Requested by Patient: No Hx Alcohol Use: No Hx Substance Use: No Preferred Language: Portuguese Communication Ability: Effective Promotions Assistant Required: No Beliefs That Will Affect Care: None marital status: Current Living Situation: Spouse current occupational status: employed Other Information That Helps Us Care for You: No Feels Safe at Home: Yes Safety Concerns: Feels Safe At This Time Assistive Devices: Glasses Review of Systems Review of Systems: At least ten systems reviewed and negative except as noted in the HPI. Physical Exam Physical Exam: General Appearance: WD/WN, vitals as above, NAD, sitting up in bed, pleasant, conversing easily Head: normocephalic, atraumatic Eyes: normal inspection, PERRL, conjunctivae normal, anicteric sclerae ENT: external ear and nose normal,+ left and right lower mandibular edema, TPP, poor dentition with caries Neck: normal visual inspection, trachea midline, no thyromegaly Respiratory: normal respiratory effort, lungs clear to auscultation, no wheeze, rales, rhonchi. No accessory muscle use Cardiovascular: regular rate, rhythm, normal peripheral pulses, no BLE edema. Vessels: no JVD Chest: normal inspection of chest Abdomen/GI: normal bowel sounds, soft, nontender, no hepatosplenomegaly Extremities/Musculoskeletal: no cyanosis or clubbing, extremities motor strength 5/5 Neurologic: PERRL, EOMI, accommodation nl, no face palsy, no dysarthria, CN's II-XI intact bilaterally and moves all extremities Psychiatric: A+Ox3, euthymic affect Skin: no rashes, normal color, warm/dry Results & Data Results & Data Vital Signs (Past 12 Hours) Vital Signs Temp Pulse Resp BP Pulse Ox O2 Del Method 10/05/24 06:36 36.9 C 93 H 18 148/105 H 98 Room Air Laboratory Results Short CBC 10/05/24 Range/Units 07:30 WBC 9.44 (4.8-10.8) K/ul Hgb 13.9 (12.0-16.0) g/dl Hct 40.8 (37.0-47.0) % Plt Count 333 (130-400) K/uL BMP 10/05/24 07:30 Sodium 140 Potassium 4.0 Chloride 109 H Carbon Dioxide 26 BUN 16 Creatinine 0.68 Glucose 100 H Calcium 9.8 Liver Function 10/05/24 Range/Units 07:30 Total Bilirubin 1.4 H (0.2-1.0) mg/dl AST 17 (13-39) U/L ALT 19 (7-52) U/L Alkaline Phosphatase 80 (34-104) U/L Albumin 4.6 (3.4-5.0) gm/dl Diagnostic Findings Chest X-Ray 10/05/24 08:41 XR chest 1V portable CLINICAL HISTORY: pre op COMPARISON STUDY: 12/13/2011 FINDINGS: Single view chest is unchanged. There is no acute cardiopulmonary process identified. No air space opacity, pleural effusion, or pneumothorax. The heart and pulmonary vascularity are unremarkable. IMPRESSION: Stable exam; no acute findings ACT 112: Negative or not required by law. Electronically signed by: Ragini Vail M.D. 10/05/2024 9:10 AM ECG Additional Comments: NSR at 66 bpm Supervising Physician Co-Signing Physician Notes Attending Addendum: Case reviewed with the advanced practitioner. I have personally performed a history and physical examination on the patient. I have reviewed the advanced practitioner's documentation on the date of service referenced in note, and I agree with, and take responsibility for the plan of care. please refer to her notes for full details patient seen and examined, records reviewed by myself as well on exam, patient seen s/p surgery having dinner R facial pain improving with pain meds no dysphagia no other symptoms VS noted and reviewed oriented x3, not in distress, speaks in sentences with no effort nor accessory muscle use moderate edema R lower face normal rate, regular rhythm, no murmurs clear breath sounds bilaterally non distended, soft, nontender no bipedal edema, erythema, warmth no neuro deficits all labs, imaging noted and reviewed ASSESSMENT AND PLAN> FACIAL CELLULITIS s/p Lower Left Facial Incision and Drainage, Closed Fistula Tract Right Maxillary Sinus and Excision Lesion Right Maxilla - Kobe Tena DMD s/p Extraction Multiple Teeth - Kobe Tena DMD other diagnoses and plan of care as per advanced practitioner's notes IV Clindamycin IV fluids, pain medications further recommendations per Dr. Tena I spent a total of 35 minutes coordinating, documenting, and providing care for this patient, excluding time spent in the performance of separately billed services or time spent by another provider/QHP. Hi Aguilar MD
--- NOTE | 2024-10-05 09:12 | XRay Report ---
XR chest 1V portable CLINICAL HISTORY: pre op COMPARISON STUDY: 12/13/2011 FINDINGS: Single view chest is unchanged. There is no acute cardiopulmonary process identified. No ai r space opacity, pleural effusion, or pneumothorax. The heart and pulmonary vascularity are unremarka ble. IMPRESSION: Stable exam; no acute findings ACT 112: Negative or not required by law. Electronically signed by: Ragini Vail M.D. 10/05/2024 9:10 AM
[2024-10-05] MEDS ORDERED: POLYETHYLENE (MIRALAX) 17 GM PACK PO PRN (09:39)
[2024-10-05] MEDS ORDERED: ONDANSETRON INJ 2 MG/ML 2 ML VIAL IV PRN ×2 (09:39→15:21)
[2024-10-05] MEDS ORDERED: ACETAMINOPHEN 325 MG TAB PO PRN (09:39)
--- NOTE | 2024-10-05 11:28 | Anesthesiology Consultation ---
Date of Service October 05, 2024 Assessment & Plan Chart Review Chart Review: Acceptable Risk for Surgery and Patient NOT seen in Pre Admission Testing History Surgery Operation Date: 10/05/24 10:30 Proposed Procedures p Right Side Facial Incision and Drainage - Kobe Tena DMD s Extraction Multiple Teeth - Kobe Tena DMD Height/Weight Height: 5 ft 1 in Weight: 64 kg Allergies Allergy/AdvReac Type Severity Reaction Status Date / Time Penicillins Allergy Intermediate Hives Verified 09/08/24 15:42 Medications Home Medications Medication Instructions Recorded Confirmed Last Taken aspirin 81 mg tablet,delayed 81 mg PO QAM #30 tabs 12/27/23 10/05/24 Unknown release atorvastatin 40 mg tablet 40 mg PO QAM #30 tabs 12/27/23 10/05/24 Unknown clopidogrel 75 mg tablet 75 mg PO QAM #30 tabs 12/27/23 10/05/24 Unknown Saccharomyces boulardii 250 mg 250 mg PO BID #20 caps 02/13/24 10/05/24 Unknown capsule (Florastor) chlorhexidine gluconate 0.12 % 15 ml mucous membrane BID oral 10/02/24 10/05/24 Unknown mouthwash (Peridex) infection #473 mL clindamycin HCl 300 mg capsule 300 mg PO TID oral infection 10 10/02/24 10/05/24 Unknown days #30 caps cholecalciferol (vitamin D3) 1,250 50,000 unit PO WK 10/05/24 10/05/24 Unknown mcg (50,000 unit) tablet melatonin 3 mg tablet 3 mg PO HS PRN Insomnia 10/05/24 10/05/24 Unknown Past Medical History Medical History Thoracic aortic aneurysm Osteomyelitis Leiomyoma of uterus, unspecified (12/08/12) 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 Teeth missing due to caries Rash Facial swelling Dental abscess Cellulitis Past Family History Family History Aunt Breast cancer Father Cancer Grandmother Diabetes Past Surgical History Surgical History Tubal ligation status Social History Smoking Status: Former smoker Do You Dip or Chew Tobacco: No Hx Alcohol Use: No Hx Substance Use: No Physical Exam Vital Signs Last Vital Signs Temp 36.9 C 10/05/24 06:36 Pulse 76 10/05/24 10:00 Resp 18 10/05/24 10:00 BP 125/82 10/05/24 10:00 Pulse Ox 96 10/05/24 10:00 O2 Del Method Room Air 10/05/24 10:00 Testing Laboratory Results 10/05/24 07:30 10/05/24 07:30
--- NOTE | 2024-10-05 13:35 | Oral/Maxillofacial Consult ---
Date of Consultation October 05, 2024 Assessment & Plan (1) Osteomyelitis of mandible: (2) Facial abscess: (3) Acute sinus infection: (4) Leukoplakia of oral mucosa/tongue: (5) Infected dental caries: (6) Radiolucent lesion in maxilla: History of Present Illness Attending Physician: Hi Aguilar MD History of Present Illness Nena continues to have swelling and pain upper and lower left and right posterior jaw.There is a drainage fistula associated with the right sinus and exposed bone lower right lingula area. I was able to get X Rays that show severe dental bone loss as many if not all the teeth are infected, fractured or grossly carious. There is no doubt that the teeth are the etiology of the bone infections, sinus infections and exposed necrotic bone on the lingual aspect of the lower right jaw. There is extensive leucoplakia throughout the mouth and tongue. The boggy oral tissue is associated with dense Leucoplakia on the buccal mucosal and gingival tissue surround the area of the exposed necrotic bone--upper right and lower right lingual tissue. With the past history of heavy everyday smoking, poor oral hygiene, exposed bone, drainage, leucoplakia, recurring facial swelling and multiply ER visits this is consistent with a chronic osteomyelitis that need debridement BEAU. Randa called me on October 02 with an increased of facial swelling left side this time I placed her on Clindamycin. She came to ER this AM because the pain, swelled to improve with the oral antibiotics. She was to be scheduled for the OR on October 23 but given the swelling, pain and not responding to the oral meds we have no choice but to admit her preform the necessary procedures and plan IV antibiotics x 24 hrs Medical clearance was obtained We will plan the following CPT Codes I&D of bilateral infection upper right /lower left CPT 16441 EXPLORE SINUS MYERS VI CPT 69535 ([id number]) REPAIR FISTULA OROMAXILLARY CPT 16963 RIGHT SINUS OPENING FROM OSTEOMYELITIS EXCISION OF BONE LOWER JAW CPT 97448 ([id number]) EXPOSED BONE OSTEOMYELITIS (L0WER RT) EXCISION SOFT TISSUE MM BENIGN +SOO 1.1-2 CM CPT 24131 ([id number]) UPPER RIGHT MUCOBUCCAL FOLD/SINUS SIMPLE EXTRACTION OF TOOTH D7140 (PG D7140)--NOT TO BE SENT TO INSURANCE BUCCAL FAT GRAFTING TO CLOSE DEFECT CPT 33879 TO OBTAIN CLOSURE OF RIGHT SINUS OPENING The dental infection has now developed into a chronic osteomyelitis of the upper right The jaw bone needs to be debrided and smoothed, teeth extracted and soft tissue advanced to close the exposed necrotic bone. On the upper posterior once the infected hard and soft tissue is removed the right sinus opening will need to be closed with a buccal fat flap and a double layer closure vis neri Myers Vi A full mouth extraction as all teeth are hopeless and contribution to the ongoing infection. There is infection upper right mucobuccal fold and cheek. There is infection and soft tissue swelling lower left floor of the mouth Both will need I&D OK for surgery this afternoon Admission for IV antibiotics Follow in office Randa discussed the fact that some of the procedures may not be covered by her medical insurance and she will be billed as discussed with Randa in my office Allergies Allergy/AdvReac Type Severity Reaction Status Date / Time Penicillins Allergy Intermediate Hives Verified 09/08/24 15:42 Home Medications Medication Instructions Recorded Confirmed Type aspirin 81 mg tablet,delayed 81 mg PO QAM #30 tabs 12/27/23 10/05/24 Rx release atorvastatin 40 mg tablet 40 mg PO QAM #30 tabs 12/27/23 10/05/24 Rx clopidogrel 75 mg tablet 75 mg PO QAM #30 tabs 12/27/23 10/05/24 Rx Saccharomyces boulardii 250 mg 250 mg PO BID #20 caps 02/13/24 10/05/24 Rx capsule (Florastor) chlorhexidine gluconate 0.12 % 15 ml mucous membrane BID oral 10/02/24 10/05/24 Rx mouthwash (Peridex) infection #473 mL clindamycin HCl 300 mg capsule 300 mg PO TID oral infection 10 10/02/24 10/05/24 Rx days #30 caps cholecalciferol (vitamin D3) 1,250 50,000 unit PO WK 10/05/24 10/05/24 History mcg (50,000 unit) tablet melatonin 3 mg tablet 3 mg PO HS PRN Insomnia 10/05/24 10/05/24 History Patient History Medical History Thoracic aortic aneurysm Osteomyelitis Leiomyoma of uterus, unspecified (12/08/12) 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 Teeth missing due to caries Rash Facial swelling Dental abscess Cellulitis Surgical History Tubal ligation status Family History Aunt Breast cancer Father Cancer Grandmother Diabetes Social History Smoking Status: Former smoker Tobacco Type: Cigarettes Do You Dip or Chew Tobacco: No; Hx Alcohol Use: No Hx Substance Use: No Preferred Language: Uzbek Communication Ability: Effective Creel Hand Required: No Beliefs That Will Affect Care: None marital status: Current Living Situation: Spouse and Family current occupational status: employed Feels Safe at Home: Yes Assistive Devices: None Results & Data Vital Signs (Past 12 Hours) Vital Signs Temp Pulse Pulse Resp BP BP Pulse Ox 10/05/24 11:30 78 18 122/91 96 10/05/24 10:00 76 18 125/82 96 10/05/24 08:00 65 18 141/83 H 98 10/05/24 06:36 36.9 C 93 H 18 148/105 H 98 O2 Del Method 10/05/24 11:30 Room Air 10/05/24 10:00 Room Air 10/05/24 08:00 Room Air 10/05/24 06:36 Room Air PG Care Time/CCT Total # of Minutes Spent Total Time Spent with Patient: Total time spent is greater than 50% in coordination of care (as documented) at patient's floor/unit and/or counseling patient: Coding Level of Care Code 60755 OFFICE CONSULT LVL 10/25M Diagnoses Osteomyelitis of mandible M27.2 Facial abscess L02.01 Acute recurrent maxillary sinusitis J01.01 Sinusitis location: maxillary Recurrence: recurrent Leukoplakia of oral mucosa/tongue K13.21 Infected dental caries K02.9; K04.7 Radiolucent lesion in maxilla M27.9 (3) Acute sinus infection Sinusitis location: maxillary Recurrence: recurrent Qualified Code(s): J01. 01 - Acute recurrent maxillary sinusitis
[2024-10-05] MEDS ORDERED: MIDAZOLAM HCL 1 MG/ML 2ML VIAL ONE (14:05)
[2024-10-05] MEDS ORDERED: LIDOCAINE 2% 2 ML VIAL/AMP(20MG/ML) INFIL ONE (14:07)
[2024-10-05] MEDS ORDERED: fentaNYL citrate PF 100 MCG/2 ML VIAL ONE (14:07)
[2024-10-05] MEDS ORDERED: PROPOFOL IV EMULSION 10 MG/ML 20 ML VIAL IV ONE (14:08)
[2024-10-05] MEDS ORDERED: ROCURONIUM BROMIDE 10 MG/ML 5 ML VIAL IV ONE ×2 (14:09)
[2024-10-05] MEDS ORDERED: PROMETHAZINE HCL 6.25 MG in SODIUM CHLORIDE 0.9% 50 ML IV PRN (15:21)
[2024-10-05] MEDS ORDERED: fentaNYL citrate PF 100 MCG/2 ML VIAL IV PRN (15:21)
[2024-10-05] MEDS ORDERED: ATROPINE SULFATE 0.1 MG/ML 10ML SYR IV PRN (15:21)
--- NOTE | 2024-10-05 15:24 | Emergency Department Note ---
History of Present Illness General Chief complaint: Dental/Oral Stated complaint: ABCESS ON LEFT SIDE OF JAW Time Seen by Provider: 10/05/24 06:58 History of Present Illness Maximum Pain Intensity: 7 This is a 59-year-old female that presents to the emergency department via private vehicle with complaints of "left-sided facial swelling". The patient notes that she is scheduled for dental extraction at the end of the month and is current on antibiotics. Despite antibiotic use recently, she notes progressive left-sided facial swelling. Pain is about a 7/10. No fevers, chills, nausea or vomiting. Home Medications Medication Instructions Recorded Confirmed Type aspirin 81 mg tablet,delayed 81 mg PO QAM #30 tabs 12/27/23 10/05/24 Rx release atorvastatin 40 mg tablet 40 mg PO QAM #30 tabs 12/27/23 10/05/24 Rx clopidogrel 75 mg tablet 75 mg PO QAM #30 tabs 12/27/23 10/05/24 Rx Saccharomyces boulardii 250 mg 250 mg PO BID #20 caps 02/13/24 10/05/24 Rx capsule (Florastor) chlorhexidine gluconate 0.12 % 15 ml mucous membrane BID oral 10/02/24 10/05/24 Rx mouthwash (Peridex) infection #473 mL clindamycin HCl 300 mg capsule 300 mg PO TID oral infection 10 10/02/24 10/05/24 Rx days #30 caps cholecalciferol (vitamin D3) 1,250 50,000 unit PO WK 10/05/24 10/05/24 History mcg (50,000 unit) tablet melatonin 3 mg tablet 3 mg PO HS PRN Insomnia 10/05/24 10/05/24 History Allergies Allergy/AdvReac Type Severity Reaction Status Date / Time Penicillins Allergy Intermediate Hives Verified 09/08/24 15:42 Past Med/Surg History Problem List (Updated 10/05/24 @ 15:24 by Rajinder Navarro PA-C) Osteomyelitis of mandible Facial abscess (Acute) Acute sinus infection Leukoplakia of oral mucosa/tongue Infected dental caries (Acute) Radiolucent lesion in maxilla Tobacco use disorder (Acute) 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) Acute ischemic stroke (Acute) Medical History Thoracic aortic aneurysm Osteomyelitis Leiomyoma of uterus, unspecified (12/08/12) 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 Teeth missing due to caries Rash Facial swelling Dental abscess Cellulitis Surgical History Tubal ligation status Family History Aunt Breast cancer Father Cancer Grandmother Diabetes Social History Smoking Status: Former smoker Tobacco Type: Cigarettes Do You Dip or Chew Tobacco: No; Hx Alcohol Use: No Hx Substance Use: No Preferred Language: Greenlandic Communication Ability: Effective Cleaner And Preparer Required: No Beliefs That Will Affect Care: None marital status: Current Living Situation: Spouse and Family current occupational status: employed Feels Safe at Home: Yes Assistive Devices: None Review of Systems A total of 10 systems reviewed and were otherwise negative Physical Exam Vital Signs Vital Signs - 24 hr 10/05/24 06:36 10/05/24 08:00 Temperature 36.9 C Temperature Source Oral Pulse Rate 93 H Pulse Rate [Left Finger] 65 Pulse Rhythm [Left Finger] Regular Pulse Strength [Left Finger] Normal Respiratory Rate 18 18 Respiratory Effort / Characteristics Non-Labored Spontaneous Non-Labored Spontaneous Labored Respiratory Depth Normal Normal Respiratory Pattern Regular Agonal Apnea Blood Pressure 148/105 H Blood Pressure [Right Arm] 141/83 H Blood Pressure Mean 119 Blood Pressure Mean [Right Arm] 102 Blood Pressure Position Sitting Blood Pressure Position [Right Arm] Lying Pulse Oximetry 98 98 Oxygen Delivery Method Room Air Room Air Sepsis Recent Fever Within 48 Hours No Sepsis New/Unexplained Change in Mental Status N/A Sepsis Action Taken by Nursing No Action Required VITAL SIGNS - Vital signs and nursing notes were reviewed. Stable and afebrile. GENERAL - 59-year-old female appearing her stated age who is in no acute distress. Communicates well with provider and answers questions appropriately. SKIN - Without rashes. Left-sided facial edema overlying the left ankle the mandible and left lower mandibular region. HEAD - NC/AT. EYES - PERRL with EOMI bilaterally. Sclera anicteric. EARS - No deformities of external structures noted on gross examination bilaterally. External auditory canals without discharge or otorrhea. Tympanic membranes pearly delong without retraction or bulging. No fluid or purulent material visualized behind the TM. Handle of malleus, umbo, cone of light, pars tensa/flaccid all easily visualized. NOSE - Midline and without cyanosis. No epistaxis or purulent drainage noted. Septum midline without deviation or septal hematoma noted. MOUTH/OROPHARYNX - Without perioral cyanosis. Buccal mucosa pink and moist and without leukoplakia. Tongue midline with equal elevation of palate bilaterally. No tonsillar hypertrophy, erythema, or exudates noted. Good dentition noted. NECK - Neck with FROM. No nuchal rigidity. LUNGS -CTA CARDIAC - RRR EXTREMITIES - +5/5 strength noted in UE/LE bilaterally. NEUROLOGIC - Cranial nerves II through XII grossly intact. PSYCH -alert, oriented and pleasant on exam Course Administered Medications Discontinued Medications Clindamycin Phosphate (Cleocin/D5w) 600 mg in 50 mls @ 100 mls/hr IV NOW ONE Stop: 10/05/24 08:09 Last Infusion: 10/05/24 08:35 Dose: Infused Documented By: Admin: 10/05/24 07:57 Dose: 100 mls/hr Documented By: YUKI Medical Decision Making Laboratory Data 10/05/24 07:30 10/05/24 07:30 Lab Results 10/05/24 Range/Units 07:30 WBC 9.44 (4.8-10.8) K/ul RBC 4.52 (4.20-5.40) M/uL Hgb 13.9 (12.0-16.0) g/dl Hct 40.8 (37.0-47.0) % MCV 90.3 (80.0-100.0) fL MCH 30.8 (25.0-34.0) pg MCHC 34.1 (32.0-36.0) g/dL RDW Std Deviation 39.0 (36.4-46.3) fL RDW Coeff of Sofy 11.9 (11.5-14.5) % Plt Count 333 (130-400) K/uL MPV 9.5 (9.4-12.4) fL Immature Gran % (Auto) 0.4 % Neut % (Auto) 74.3 % Lymph % (Auto) 15.8 % [place] % (Auto) 7.6 % Eos % (Auto) 1.4 % Baso % (Auto) 0.5 % Neut # (Auto) 7.01 H (1.40-6.50) K/uL Lymph # (Auto) 1.49 (1.20-3.40) K/uL [place] # (Auto) 0.72 H (0.11-0.59) K/uL Eos # (Auto) 0.13 (0.00-0.50) K/uL Baso # (Auto) 0.05 (0.00-0.20) K/uL Immature Gran # (Auto) 0.04 (0.01-0.20) K/uL Sodium 140 (136-145) mmol/L Potassium 4.0 (3.5-5.1) mmol/L Chloride 109 H (98-107) mmol/L Carbon Dioxide 26 (21-32) mmol/L Anion Gap 5 (3-11) BUN 16 (6-23) mg/dl Creatinine 0.68 (0.6-1.2) mg/dl Est Cr Clr Drug Dosing 75.4 ml/min eGFR 99.64 BUN/Creatinine Ratio 23.5 H (10-20) Glucose 100 H (70-99(Fasting)) mg/dl Calcium 9.8 (8.6-10.3) mg/dl Total Bilirubin 1.4 H (0.2-1.0) mg/dl AST 17 (13-39) U/L ALT 19 (7-52) U/L Alkaline Phosphatase 80 (34-104) U/L Total Protein 7.8 (6.0-8.3) gm/dl Albumin 4.6 (3.4-5.0) gm/dl Globulin 3.2 (2.5-4.0) gm/dl Albumin/Globulin Ratio 1.4 (0.9-2) Imaging Data Radiologist's Impression: Chest X-Ray 10/05/24 08:41 XR chest 1V portable CLINICAL HISTORY: pre op COMPARISON STUDY: 12/13/2011 FINDINGS: Single view chest is unchanged. There is no acute cardiopulmonary process identified. No air space opacity, pleural effusion, or pneumothorax. The heart and pulmonary vascularity are unremarkable. IMPRESSION: Stable exam; no acute findings ACT 112: Negative or not required by law. Electronically signed by: Ragini Vail M.D. 10/05/2024 9:10 AM MDM Narrative Patient was seen and evaluated as above in room A11b. Review was performed of triage nursing notes and vital signs. I did review pertinent previous visits and patient history. After obtaining a thorough history and physical examination the above work up was performed. Patient presents to us today for evaluation of left-sided facial swelling in the setting of known dental issue currently on oral clindamycin pending dental extraction later this month. Despite the antibiotics, the swelling is worsening. Options of care were discussed with the patient. IV access was established. Labs were drawn. There is no leukocytosis or concerning anemia. No emergent metabolic disturbance. Mild elevation of T. bili at 1.4. This appears to be a new finding but not contributory to today's presentation. I discussed presentation with Dr. Tena [facility]. Plan is for inpatient management and surgical intervention. IV clindamycin was ordered. I discussed presentation with the hospitalist service. Please refer to further documentation regarding her stay. Hospitalist did recommend EKG and chest x-ray preoperatively which I did add. Chest x-ray per my interpretation was negative for acute process. The EKG per my interpretation reveals normal sinus rhythm at a rate of 66 bpm. QTc 394. QRS 82. No ST elevation. GCS: 15 In the evaluation and treatment of this patient, the following differential diagnoses were considered: Periapical Abscess, Osteonecrosis of the Jaw, Dental Fracture, Dental Caries, Francisco's Angina, Vincent's Angina, Facial Cellulitis. Impression & Plan Facial abscess, Infected dental caries Discharge Plan Visit Data Chief Complaint: Dental/Oral Stated Complaint: ABCESS ON LEFT SIDE OF JAW ED Provider: Adin Pitts ED Midlevel Provider: Rajinder Navarro Discharge Problem: Facial abscess, Infected dental caries Patient Disposition: Admitted As Inpatient Condition: Good Discharge Instructions Interventions: ED Discharge Assessment Last Done: 10/05/24 13:30
[2024-10-05] MEDS: CLINDAMYCIN/D5W 900 MG/50 ML BAG IV SCH (15:30)
[2024-10-05] MEDS ORDERED: PHENYLEPHRINE 100MCG/ML 5ML SYR ONE (15:40)
[2024-10-05] MEDS: BUPIVACAINE/EPINEPHRINE 0.5% 1:200,000 1.8 ML CARP ONE (15:48)
[2024-10-05] MEDS: CHLORHEXIDINE GLUCONATE 0.12% 480 ML MT ONE (15:49)
[2024-10-05] MEDS ORDERED: MELATONIN 3 MG TAB PO PRN (15:54)
[2024-10-05] MEDS ORDERED: HYDROmorphone INJ 2 MG/ML SYR/VIAL ONE (16:41)
[2024-10-05] MEDS ORDERED: SUGAMMADEX SODIUM 200 MG/2 ML VIAL IV ONE (16:42)
--- NOTE | 2024-10-05 17:03 | Post Operative Brief Note ---
PG Immediate Post Op with CF Date of Surgery October 05, 2024 Pre & Post Diagnosis Operation Date: 10/05/24 10:30 Pre-Op Diagnosis: (1) Osteomyelitis of mandible (2) Facial abscess (3) Acute sinus infection (4) Leukoplakia of oral mucosa/tongue (5) Infected dental caries (6) Radiolucent lesion in maxilla Post-Op Diagnosis: (1) Osteomyelitis of mandible (2) Facial abscess (3) Acute sinus infection (4) Leukoplakia of oral mucosa/tongue (5) Infected dental caries (6) Radiolucent lesion in maxilla I identified the patient and participated in the time-out.: Yes Procedure Operation Date: 10/05/24 10:30 Actual Procedures p Lower Left Facial Incision and Drainage, Closed Fistula Tract Right Maxillary Sinus and Excision Lesion Right Maxilla - Kobe Tena DMD s Extraction Multiple Teeth - Kobe Tena DMD Surgeon Kobe Tena DMD Director Of Outreach none Estimated Blood Loss 5 Findings Consistent with Post-Op Diagnosis gross infection upper right and lower left from midline to submandibular area Sinus opening, fistula Infected teeth, draining fistula and suspect osteomyelitics Specimens Specimen Description: A. Fistula Tract Right Maxillary Sinus Anesthesia Type General Complications gross bone loss and recurrent facial and sinu sinfection Disposition Accompanied Patient To Recovery: Yes
[2024-10-05] MEDS: fentaNYL citrate PF 100 MCG/2 ML VIAL ONE (17:04)
--- NOTE | 2024-10-05 17:22 | Anesthesiology Progress Note ---
Date of Service October 05, 2024 Anesthesia Post Procedure Vital Signs Vital Signs: Temp Pulse Pulse Pulse Resp BP BP 10/05/24 17:15 64 16 170/94 H 10/05/24 17:05 69 16 187/97 H 10/05/24 16:59 36.1 C L 72 16 181/100 H 10/05/24 13:45 37 C 72 18 139/79 10/05/24 13:31 80 18 107/76 10/05/24 11:30 78 18 122/91 10/05/24 10:00 76 18 125/82 10/05/24 08:00 65 18 141/83 H 10/05/24 06:36 36.9 C 93 H 18 148/105 H Pulse Ox O2 Del Method O2 Flow Rate 10/05/24 17:15 94 Room Air 10/05/24 17:05 100 Oxymask 2 10/05/24 16:59 100 Oxymask 4 10/05/24 13:45 99 Room Air 10/05/24 13:31 96 Room Air 10/05/24 11:30 96 Room Air 10/05/24 10:00 96 Room Air 10/05/24 08:00 98 Room Air 10/05/24 06:36 98 Room Air Pain Intensity Mouth: Pain Intensity: 8 Transfer of Care Handoff Completed per policy Notes Mental Status: alert / awake / arousable Patient Amnestic to Procedure: Yes Nausea / Vomiting: adequately controlled Pain: adequately controlled Airway Patency, RR, SpO2: stable & adequate BP & HR: stable & adequate Hydration State: stable & adequate Anesthetic Complications: no major complications apparent
[2024-10-05] MEDS: ERGOCALCIFEROL 1250 MCG (50,000 UNITS) CAP PO SCH (18:13)
[2024-10-05] MEDS: CLINDAMYCIN 900 MG/D5W 50 ML BAG IV ONE (18:13)
[2024-10-05] MEDS: MoRPHine SULFATE 4 MG/ML 1 ML CARP\\VIAL IV PRN (18:37)
[2024-10-05] MEDS: CLINDAMYCIN/D5W 300 MG/50 ML BAG IV ONE (20:55)
[2024-10-05] MEDS: CHLORHEXIDINE GLUCONATE 0.12% 480 ML MT SCH (20:56)
[2024-10-05] MEDS ORDERED: CLINDAMYCIN/D5W 600 MG/50 ML BAG IV SCH (23:30)
[2024-10-06 01:04] VITALS: RESP 16
[2024-10-06] MEDS: SACCHAROMYCES BOULARDII 250 MG CAP PO SCH (05:29)
--- NOTE | 2024-10-06 06:23 | Electrocardiogram Report ---
Test Reason : Blood Pressure : */* mmHG Vent. Rate : 66 BPM Atrial Rate : 66 BPM P-R Int : 152 ms QRS Dur : 82 ms QT Int : 376 ms P-R-T Axes : 46 64 47 degrees QTcB Int : 394 ms Normal sinus rhythm Normal ECG When compared with ECG of 25-Dec-2023 14:33, Vent. rate has increased by 25 bpm T wave amplitude has decreased in Anterior leads Confirmed by José Thayer ([id number]) on 10/06/2024 6:22:43 AM Referred By: REFERRED SELF Confirmed By: José Thayer
[2024-10-06 07:36] LABS: Hematocrit (blood only) 33.9 % (37.0-47.0); Hemoglobin 11.7 g/dl (12.0-16.0); Mean Corpuscular Hemoglobin 31.5 pg (25.0-34.0); Mean Corpuscular Hgb Conc 34.5 g/dL (32.0-36.0); Mean Corpuscular Volume 91.1 fL (80.0-100.0); Mean Platelet Volume 9.6 fL (9.4-12.4); Platelet Count 287 K/uL (130-400); RDW Coefficient of Variation 12.1 % (11.5-14.5); RDW Standard Deviation 40.5 fL (36.4-46.3); Red Blood Count 3.72 M/uL (4.20-5.40); White Blood Count 9.63 K/ul (4.8-10.8)
[2024-10-06 07:59] LABS: Calcium 8.8 mg/dl (8.6-10.3); Creatinine Clr Calc Pharmacy 85.1 ml/min; Potassium 3.8 mmol/L (3.5-5.1)
[2024-10-06] MEDS: ATORVASTATIN 40 MG TAB PO SCH (09:33)
[2024-10-06] MEDS: ASPIRIN 81 MG ECTAB PO SCH (09:33)
[2024-10-06] MEDS: CLOPIDOGREL BISULFATE 75 MG TAB PO SCH (09:33)
[2024-10-06] MEDS: CLINDAMYCIN/D5W 600 MG/50 ML BAG IV SCH (09:34)
[2024-10-06 12:13] VITALS: BP 126/83; PULSE 73; TEMP 97.2; O2SAT 100
--- NOTE | 2024-10-06 13:23 | Oral/Maxillofacial Progress Nt ---
Date of Service October 06, 2024 Assessment & Plan Admission and Anticipated Discharge Date Admission Date: October 05, 2024 Subjective Post Op infection evaluation at 24 hours The infected area is resolved very well. Swelling is going down and is now very soft and the tissue is getting back t normal in size and texture. The right sinus mass site is well closed with no sinus opening, excellent nasal air flow No further drainage is noted on the upper right nd lower left Infection has responded very well to the antibiotics, extractions and the I and D. I requested that the patient continue with massage, heat and wound care. At this time the area is well healed and responded well to treatment, no further treatment needed other then follow up. OK for D/C RTC in 2 weeks October 20 at 9 am Results & Data Vital Signs (Past 12 Hours) Vital Signs Temp Pulse Resp BP Pulse Ox O2 Del Method 10/06/24 11:38 36.2 C L 73 16 126/83 100 Room Air 10/06/24 07:22 36.6 C 70 16 98/64 L 98 Room Air 10/06/24 05:00 36.7 C 66 16 91/58 L 98 Room Air PG Care Time/CCT Total # of Minutes Spent Total Time Spent with Patient: Total time spent is greater than 50% in coordination of care (as documented) at patient's floor/unit and/or counseling patient: Coding Level of Care Code None
--- NOTE | 2024-10-06 14:10 | Discharge Summary ---
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 Contacted Dr. Tena on Saturday due to left molar pain and swelling and was prescribed oral clindamycin, which she is taken over the weekend. Swelling persisted over the weekend, prompting ED visit this AM. Pain free at time of interview. Has been tolerating a soft diet but it is getting more difficult. Did not eat anything yet this AM and did not take aspirin or plavix yet today. Quit smoking after November 2024 and now occasionally uses her daughter's vape pen. Has followed closely with Dr. Tena over the past few months with suspected chronic osteomyelitis of the upper R and left jaw. No F/C, lightheadedness, CP, SOB, N/V, abd pain, dysuria, diarrhea or constipation. Was admitted for CVA 2/2 R vertebral artery occlusion in November 2023 at [facility] and underwent TNK at that time. No residual deficits and was discharged on DAPT and statin. Followed up with neurovascular surgery at [facility] in June for evaluation of an infundibulum versus aneurysms of the right MCA that was found incidentally during stroke workup for an occlusion of the right vertebral artery. Diagnostic cerebral angiogram by Dr. Dr. Parker in Jun 2024 revealed R MCA trifurcation with slight broadening in the trifurcation itself, normal variant. Has continued with aspirin, plavix and statin compliance without any further issues. No stroke sequelae. Underwent a 2D echo around this time that revealed a mild proximal ascending thoracic aneurysm of 4cm in Mar 2024 with follow up echo scheduled for this March. Admission Exam Per Admitting Provider General Appearance: WD/WN, vitals as above, NAD, sitting up in bed, pleasant, conversing easily Head: normocephalic, atraumatic Eyes: normal inspection, PERRL, conjunctivae normal, anicteric sclerae ENT: external ear and nose normal,+ left and right lower mandibular edema, TPP, poor dentition with caries Neck: normal visual inspection, trachea midline, no thyromegaly Respiratory: normal respiratory effort, lungs clear to auscultation, no wheeze, rales, rhonchi. No accessory muscle use Cardiovascular: regular rate, rhythm, normal peripheral pulses, no BLE edema. Vessels: no JVD Chest: normal inspection of chest Abdomen/GI: normal bowel sounds, soft, nontender, no hepatosplenomegaly Extremities/Musculoskeletal: no cyanosis or clubbing, extremities motor strength 5/5 Neurologic: PERRL, EOMI, accommodation nl, no face palsy, no dysarthria, CN's II-XI intact bilaterally and moves all extremities Psychiatric: A+Ox3, euthymic affect Skin: no rashes, normal color, warm/dry Principal Diagnosis Bilateral lower dental pain and swelling Discharge Exam General Appearance: WD/WN, vitals as above, NAD, sitting up in bed, pleasant, conversing easily Head: normocephalic, atraumatic Eyes: normal inspection, PERRL, conjunctivae normal, anicteric sclerae ENT: external ear and nose normal,+ left and right lower mandibular edema, TPP, sutures over lower gums Neck: normal visual inspection, trachea midline, no thyromegaly Respiratory: normal respiratory effort, lungs clear to auscultation, no wheeze, rales, rhonchi. No accessory muscle use Cardiovascular: regular rate, rhythm, normal peripheral pulses, no BLE edema. Vessels: no JVD Chest: normal inspection of chest Abdomen/GI: normal bowel sounds, soft, nontender, no hepatosplenomegaly Extremities/Musculoskeletal: no cyanosis or clubbing, extremities motor strength 5/5 Neurologic: PERRL, EOMI, accommodation nl, no face palsy, no dysarthria, CN's II-XI intact bilaterally and moves all extremities Psychiatric: A+Ox3, euthymic affect Skin: no rashes, normal color, warm/dry Discharge Data Allergies Allergy/AdvReac Type Severity Reaction Status Date / Time Penicillins Allergy Intermediate Hives Verified 09/08/24 15:42 Consultations 10/05/24 08:29 ED Decision to Admit Stat 10/05/24 09:05 Consult Oromaxillofacial Surgery Routine Procedures Performed Operation Date: 10/05/24 10:30 Actual Procedures p Lower Left Facial Incision and Drainage, Closed Fistula Tract Right Maxillary Sinus and Excision Lesion Right Maxilla - Kobe Tena DMD s Extraction Multiple Teeth - Kobe Tena DMD Hospital Course (1) Osteomyelitis of mandible: (2) Infected dental caries: (3) 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: (4) Thoracic aortic aneurysm: Plan This is a 59-year-old female with PMH of 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 Compliant with DAPT, statin Dr. Tena evaled, s/p Lower Left Facial Incision and Drainage, Closed Fistula Tract Right Maxillary Sinus and Excision Lesion Right Maxilla 3/ Pt ok to dc per OMFS w/ clindamycin, pt to closely f/u w/ Dr. Tena on DC. History of CVA 2/2 R vertebral artery occlusion in November 2023 Admitted at [facility] in November, underwent TNK. No residual deficits and was discharged on DAPT and statin Followed up with neurovascular surgery at [facility] in June for evaluation of an infundibulum versus aneurysms of the right MCA found incidentally - cerebral angiogram showed normal variant C/w aspirin, plavix. Stable thoracic aneurysm 2D echo around this time that revealed a mild proximal ascending thoracic aneurysm of 4cm in Mar 2024 with follow up echo scheduled for this March DVT Ppx: SCDs Code status: FULL PCP: [facility] Attestation I certify that this patient is under my care and that I, or a physicians dental assistant teacher working with me, had a face to-face encounter that meets the home health [id number] encounter requirements with this patient. The encounter with the patient was in whole, or in part, for the following medical condition, which is the primary reason for home health care (list medical condition): I certify that, based on my findings, the following services are medically necessary home health services: My clinical findings support the need for the above services because: Further, I certify that my clinical findings support that this patient is homebound (i.e. absences from home require considerable and taxing effort and are for medical reasons or scientology services or infrequently or of short duration when for other reasons) because: Certification for Home Health Services: Based on the above findings, I certify that this patient is confined to the home and needs intermittent alf care, physical therapy and/or speech therapy or continues to need occupational therapy. The patient is under my care, and I have initiated the establishment of the plan of care. This patient will be followed by a physician who will periodically review the plan of care. Total Time Total Time Spent Total Time Spent (In Minutes): 35 Discharge Plan Discharge Items Patient Disposition: Home - Self-Care Reason For Visit: DENTAL PAIN Discharge Diagnosis: s/p I&D and sinus surgery and debridement of infected bone and soft Condition on Discharge: Good Activity: Resume your previous activity Lifting: Gradually increase as tolerated Bathing: No limitations Exercise/Sports: Gradually increase as tolerated Driving/Machine Use: Resume 1 day after discharge Weightbearing: Full weightbearing Non-emergency contact: Surgeon Call non-emergency contact if: you have any medication questions, your symptoms worsen, your pain is not controlled, your temperature is above 101.5, your wound has increased redness, your wound has increased drainage and your wound pain has increased Follow-up/Referrals: Kobe Tena DMD [Physician] - Colin Voss MD [Primary Care Provider] - (Date & Time 10/15/2024 8:40 AM Provider: Naima Reyes PA-C [facility] ) Diet: Full liquid and Clear liquid Diet Texture: Pureed (blended smooth) Diet Comment: advance diet as tolerated Addtl Attending Provider Instructions: ADDITIONAL ACTIVITY RECOMMENDATIONS: * [place] teeth after every meal. It is very important to keep your mouth clean to prevent infection. * Starting tonight rinse with the Peridex as directed then 2 x a day * it is very important to keep well hydrated, this prevents fever and possible dry socket pain SPECIAL CARE INSTRUCTIONS: *It is not uncommon that between day 2-4 that your swelling will be at its worst this is very normal, do not be alarmed. * Keep ice on the side of your face for the next 24 to 36 hours. This will help keep the swelling down. * After 36 hours, apply heat (hot water bottle or heating pad) for the next two days, as often as possible. * Tomorrow start rinsing your mouth with 1/2 teaspoon salt in 8 ounces warm water. This rinse should be used every 4-6 hours. * You may experience slight nausea. To prevent this, never take your medication on an empty stomach. If nauseated, take small sips of carine ananth until you feel better; then you may start on applesauce and toast. * A certain amount of bleeding is to be expected. It is often possible to control mild oozing by placing folded gauze over the area and biting down for 30 minutes. If you are unable to control excessive bleeding, call Dr Tena at [phone] * You may experience some discomfort for a few days. If pain or swelling increases, Call Dr Tena * Return to the office for a follow up check up on: October 20 at 9 am * office address--[address] [place] [address] . phone # [phone] Pending Studies at Discharge: Yes Studies:: pathology Stand-Alone Forms: My [facility] LessonFace, Smoking Cessation Medications and DC Order Prescriptions: Continued clindamycin HCl 300 mg capsule 300 mg PO TID 10 Days Qty: 30 0RF chlorhexidine gluconate [Peridex] 0.12 % mouthwash 15 ml mucous membrane BID Qty: 473 0RF Saccharomyces boulardii [Florastor] 250 mg capsule 250 mg PO BID Qty: 20 0RF Rx Instructions: swallow whole atorvastatin 40 mg Tablet 40 mg PO QAM Qty: 30 2RF clopidogrel 75 mg Tablet 75 mg PO QAM Qty: 30 2RF aspirin 81 mg Tablet,Delayed Release (Dr/Ec) 81 mg PO QAM Qty: 30 2RF melatonin 3 mg Tablet 3 mg PO HS PRN (Reason: Insomnia) cholecalciferol (vitamin D3) 1,250 mcg (50,000 unit) Tablet 50,000 unit PO WK Discharge Orders: Discharge Order (Routine); Ordered 10/06/24 Ordered By: Kobe Valentine/Other Patient Handouts: Chlorhexidine Mouthwash Admission Data Admit Date/Time: 10/05/24 09:04 Attending Provider: Vadim Winn Admit Provider: Hi Aguilar Primary Care Provider: Colin Voss Other Providers: Hi Aguilar; Kobe Tena Other Interventions: Discharge Summary Assessment (RN) Last Done: 10/06/24 13:52
--- NOTE | 2024-10-17 13:31 | Operative Report ---
PG Post Operative Report Pre & Post Diagnosis Operation Date: 10/05/24 10:30 Pre-Op Diagnosis: (1) Osteomyelitis of mandible (2) Facial abscess (3) Acute sinus infection (4) Leukoplakia of oral mucosa/tongue (5) Infected dental caries (6) Radiolucent lesion in maxilla Post-Op Diagnosis: (1) Osteomyelitis of mandible (2) Facial abscess (3) Acute sinus infection (4) Leukoplakia of oral mucosa/tongue (5) Infected dental caries (6) Radiolucent lesion in maxilla I identified the patient and participated in the time-out.: Yes Procedure Operation Date: 10/05/24 10:30 Actual Procedures p Lower Left Facial Incision and Drainage, Closed Fistula Tract Right Maxillary Sinus and Excision Lesion Right Maxilla - Kobe Tena DMD s Extraction Multiple Teeth - Kobe Tena DMD Surgeon Kobe Tena DMD Search Manager none Estimated Blood Loss 5 Findings Consistent with Post-Op Diagnosis Specimens fistula and soft tissue mass upper right side Drains none Anesthesia Type General Complications none Disposition Accompanied Patient To Recovery: Yes Indications recurrent facial infection with infected bone and upper tissue posterior right area sinus fistula-associated with large infected tissue mass failed multiply courses of oral antibiotic presented to ER due to pain and swelling Description of Procedure CPT Codes I&D of bilateral infection upper right /lower left CPT 32678 EXPLORE SINUS MAY VI CPT 75202 ([id number]) REPAIR FISTULA OROMAXILLARY CPT 47584 RIGHT SINUS OPENING FROM OSTEOMYELITIS EXCISION OF BONE LOWER JAW CPT 03407 ([id number]) EXPOSED BONE OSTEOMYELITIS (LR) EXCISION SOFT TISSUE MM BENIGN +SOO 1.1-2 CM CPT 86188 ([id number]) UPPER RIGHT MUCOBUCCAL FOLD/SINUS SIMPLE EXTRACTION OF TOOTH D7140 (PG D7140)--NOT TO BE SENT TO INSURANCE BUCCAL FAT GRAFTING TO CLOSE DEFECT CPT 24994 TO OBTAIN CLOSURE OF RIGHT SINUS OPENING The dental infection has now developed into a chronic osteomyelitis of the upper right The jaw bone needs to be debrided and smoothed, teeth extracted and soft tissue advanced to close the exposed necrotic bone. On the upper posterior once the infected hard and soft tissue is removed the right sinus opening will need to be closed with a buccal fat flap and a double layer closure via a May Vi A full mouth extraction as all teeth are hopeless and contribution to the ongoing infection. There is infection upper right mucobuccal fold and cheek. There is infection and soft tissue swelling lower left floor of the mouth Both will need I&D Once cleared for surgery general anesthesia was achieved, the eyes were protected by the anesthesia dept criteria. A time out was take for patient ID, antibiotics, equipment and position verification once all agreed the procedure began. Local anesthesia using Marcaine with a vasoconstrictor ( 1.8 ml per site) given into the upper and lower jaw area A throat pack was placed after the oral cavity was irrigated with saline. Once a surgical level of anesthesia was obtained and the local anesthesia was given time for the blocks the surgery was started. I turned my attention to the infection which was located in the in the right cheek,right vestibule, right tuberosity area, right Infraorbital fossa area and right sinus-see CT scan report Also a left submandibular infection recently developed lower left side Incision and Drainage (22681) upper right and lower left Upper right Using a 15 blade an incision was made in the posterior aspect of the right vestibular area. Once the incision was made a lot of pus extruded from the site. A curved hemostat was carefully placed superior into the infected space to drain the infraorbital space. To gain access to the pocket of pus in the cheek another incision was made in the vestibule. This allowed further drainage to escape. I palpated the face and cheek area and no further drainage was expressed. The area was irrigated with at least 100 ml of NS solution. Lower left Using a 15 blade an incision was made in the posterior aspect of the left floor of the mouth care was taken to not injury the ducts or vessels. Once the incision was made a lot of pus extruded from the site. A curved hemostat was carefully placed inferior to drain the submandibular, submental and masseter spaces. This allowed further drainage to escape. I palpated the chin and submandibular area and no further drainage was expressed. The area was irrigated with at least 100 ml of NS solution. SIMPLE EXTRACTION OF 10 TEETH D7140 (PG D7140)--NOT TO BE SENT TO INSURANCE Patient will pay for the 10 extraction in the office D7140 at $85 per tooth = $ 850 The following teeth were removed 2,3,6,8,9,11,18,19,22,27 As a results of the many infections most of the lower teeth an da few upper teeth were fractured at the line resulting in loose retained root tips that will not be charged. I discussed with Randa that we will only be charging for 10 simple extraction at a cost of $ 850 which she will be paying at her post op appointment. D7140 x 10 simple extractions The teeth were fragments of teeth and roots, there were a few other fragments which were just w/in the soft tissue and were removed w/o difficulty. Now using a periosteal elevator the tissue was reflected to expose the alveolar bone. The rongeur was used to remove bone to allow the forceps to engage solid tooth structure. Using a controlled force the following roots and tooth fragments were extracted in the standard manner. Once removed the roots were inspected and the socket was curetted. Upper right side surgical procedures EXCISION SOFT TISSUE MM BENIGN +SOO 1.1-2 CM CPT 98266 ([id number]) UPPER RIGHT MUCOBUCCAL FOLD/SINUS EXPLORE SINUS MAY VI upper right CPT 49041 ([id number]) REPAIR FISTULA OROMAXILLARY CPT 54545 RIGHT SINUS OPENING FROM OSTEOMYELITIS BUCCAL FAT GRAFTING TO CLOSE DEFECT CPT 71303 TO OBTAIN CLOSURE OF RIGHT SINUS OPENING Once the infections were drained and the infected loose tooth fragments were removed I turned my attention to the major issue of the large oral sinus fistula associated with the large soft tissue mass in the upper right posterior area. 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 The mass was an exophytic infected hyperplastic tissue from chronic infection resulting in bone infection and sinus perforation leading to a chronic sinus opening. Once the mass was removed it was noted that there was a large opening in to the sinus. The May procedure was use to enlarge the opening, by doing so a lot of pus extruded from the sinus. I suctioned the mucopurulent material from the sinus. I now used about 200 cc of NS to irrigate the sinus clean. As the result of bone disease, bone loss and extremely large maxillary sinus this patient developed an acute sinus infection. As part of the May Vi I raised a large mucoperiosteal flap from the tuberosity anterior to area #8 which was associated with the mass excision. To prevent breakdown of the soft tissue I was able to advance a buccal fat flap over the opening and secure it in place then I advanced the large mucoperiosteal flap over the buccal fat flap to obtain an excellent water tight closure. I inspected the sites to insure all bleeding was controlled. I removed the throat pack and suctioned the throat. A gauze pressure dressings was placed right posterior. All instrument and sponge count was correct. The patient was allowed to awake from the anesthesia. Once full awake the anesthesia tube was removed and the patient was taken to the recovery room with all vital sign stable. The patient tolerated the surgery very well. I will follow the patient in my office, Rx and instructions will be given upon discharge. Sinus precautions will be given I attest to the content of the Intraoperative Record and any orders documented therein. Any exceptions are noted below.
== END 2024-10-06 14:59 | disposition home or self-care (01) ==
LOC: EDINP 06:30 → ED 06:30 → SUATTDRO 09:04 → EDINP 13:42 → 3N 18:13